=== PATIENT | male | born 1965 | race Caucasian/White ===

== ENCOUNTER 2020-06-01 11:48 | Inpatient (IN) | payer OTHER, SELFPAY ==
[2020-06-01] VITALS (11 sets, daily range): BP systolic 111–144; BP diastolic 53–91; PULSE 90–105; RESP 20–40; TEMP 35.7–38.1; O2SAT 89–95; BMI 35.2
--- NOTE | 2020-06-01 12:06 | ECG_ITS ---
Test Reason : OVERDOSE Blood Pressure : / mmHG Vent. Rate : 104 BPM Atrial Rate : 104 BPM P-R Int : 166 ms QRS Dur : 078 ms QT Int : 334 ms P-R-T Axes : 047 -33 032 degrees QTc Int : 439 ms Sinus tachycardia Left axis deviation Abnormal ECG No previous ECGs available Referred By: Pamela Pennington Electronically Signed By:SUKHDEEP FONSECA MD
--- NOTE | 2020-06-01 12:07 | XR_ITS ---
EXAMINATION: XR CHEST CLINICAL INFORMATION: Dyspnea COMPARISON: Report only of May 31, 2010 TECHNIQUE: AP portable view of the chest was obtained. FINDINGS: There is some elevation of the right hemidiaphragm with small lung volumes. No significant confluent acute parenchymal disease, pneumothorax, or pleural effusion. Heart normal size. No evidence of pulmonary edema. Mild basilar atelectasis seen right base. XR/XR chest 1V IMPRESSION: No significant acute parenchymal disease.
--- NOTE | 2020-06-01 12:08 | ED_ITS ---
HPI - Overdose General Chief Complaint: Dyspnea Stated Complaint: bloody nose, sob, weakness Time Seen by Provider: 06/01/20 12:05 Source: patient and EMS Mode of arrival: EMS Limitations: no limitations History of Present Illness HPI Narrative: patient snorted 10 bags of heroin lsat night, woke up with blood all over his face and coughing up brown phlegm, upon waking gave himself 2mg IN narcan now c/o shaking and nausea complaint: accidental overdose Onset (ago): day(s) (last night snorted 10 bags of heroin after coming off of suboxone 1 week ago) Context: Accidental Overdose: wanted to get high Associated symptoms: nausea/vomiting Treatments Prior to Arrival: oxygen (hypoxic 90% on RA, self administered narcan) Related Data Home Medications Medication Instructions Recorded Confirmed fluoxetine [Prozac] 20 mg PO DAILY 06/01/20 olanzapine 10 mg PO DAILY 06/01/20 Allergies Allergy/AdvReac Type Severity Reaction Status Date / Time No Known Allergies Allergy Verified 06/01/20 12:06 Review of Systems Review of Systems: Constitutional : No Fever, pos Chills ENT/Mouth : No sore throat, No Rhinorrhea, No Swallowing Difficulty Eyes: No Eye Pain, No Swelling, No Redness Cardiovascular : No Chest Pain, positive SOB, No Orthopnea, no Edema Respiratory : pos Cough, pos Sputum, No Wheezing, positive dyspnea Gastrointestinal : pos Nausea, No Vomiting, No Diarrhea, No abdominal Pain, No Hematochezia, No Melena Genitourinary : No Dysuria, No Urinary Frequency, No Hematuria Musculoskeletal : No joint pain, No Myalgias Skin : No Skin Lesions, No rash Neuro : No Weakness, No Numbness, No Dizziness, No Headache Psych : No Anxiety/Panic, No Depression Heme/Lymph: No Bruising, No Lymphadenopathy Endocrine : No Polyuria, No Polydipsia All other systems reviewed and are negative [facility] Past Medical History Attestation statement: The following information was validated with the patient. Medical History DIRK (obstructive sleep apnea) PTSD (post-traumatic stress disorder) Social History Social History Alcohol intake: never Smoking Status: Never smoker Use of substances other than those prescribed or required for medical reasons: Yes Substance Use Type: Heroin Substance Use Frequency: Recent Binge Last Used Substance: Days (ago) Any prior treatment program specific to substance use: Yes Advance Directives: No Advance Directives Information Provided: Yes Physical Exam Vital Signs: Vital Signs: Last Vital Signs Temp 100.5 F H 06/01/20 14:00 Pulse 97 06/01/20 15:38 Resp 30 H 06/01/20 15:38 BP 119/82 06/01/20 15:38 Pulse Ox 93 06/01/20 15:38 Body Mass Index 35.2 Appearance: Alert. Oriented X3. anxious, mild acute distress Eyes: Pupils equal, round and reactive to light. ENT: Pharynx normal. dried blood in R nare Neck: Normal inspection. Neck supple. CVS: Normal heart rate and rhythm. Pulses normal. Respiratory: No respiratory distress. Breath sounds decreased - brown sputum noted Abdomen: Soft and non-tender. Skin: Skin warm and dry. Normal skin color. Normal skin turgor. Extremities: No lower extremity edema. No calf ttp Neuro: Oriented X 3. No motor deficit. tips of L fingers 3-5 c/o feeling numb but can move freely Course Course Course Narrative: repeat lactic acid improving still low 90s on 4 to 5L NC, given tylenol for fever, empiric zosyn already given planned admit suspect L hand parasthesias due to compressive issue motor intact MDM - Overdose MDM Narrative Medical decision making narrative: 54 yo male with opiate use disorder woke up today with a bloody nose, brown sputum, gave himself narcan - given scenario and hypoxia suspect aspiration will need labs, CXR, cultures, lactic acid, IV zosyn, requiring supplemental O2 - planned admit Lab Data Result diagrams: 06/01/20 12:13 06/01/20 12:12 Labs: Lab Results 06/01/20 06/01/20 06/01/20 Range/Units 12:12 12:13 12:13 WBC 10.1 (4.8-10.8) X10*3/uL RBC 4.25 L (4.60-5.80) X10*6/uL Hgb 13.1 L (14.0-18.0) g/dl Hct 41.0 L (42-52) % MCV 96.5 (80-98) fL MCH 30.8 (27.0-33.0) pg MCHC 32.0 (31.0-36.0) g/dl RDW 14.1 (11.0-16.0) % Plt Count 259 (160-400) X10*3/uL MPV 9.5 (9.4-12.4) fL Immature Gran % (Auto) 0.8 H (0.0-0.4) % Neut % (Auto) 83.6 H (45-73) % Lymph % (Auto) 4.3 L (20-40) % Brantley % (Auto) 11.1 H (2-11) % Eos % (Auto) 0.0 (0-4) % Baso % (Auto) 0.2 (0-2) % Lymph # (Auto) 0.4 L (1.2-4.9) X10*3/uL Brantley # (Auto) 1.1 (0.1-1.2) X10*3/uL Eos # (Auto) 0.0 (0.0-0.4) X10*3/uL Baso # (Auto) 0.0 (0.0-0.2) X10*3/uL Abs Immat Gran (auto) 0.08 H (0.00-0.03) X10*3/uL Absolute Neuts (auto) 8.5 H (2.0-8.3) X10*3/uL Absolute Nucleated RBC 0.020 H (0.0-0.012) X10*3/uL Nucleated RBC % (auto) 0.2 (0.0-0.2) /100WBC Smear Tech's Comments VERIFIED PT 11.4 (10.8-13.0) SEC INR 1.0 (0.9-1.1) APTT 27.7 (24.1-38.0) SEC ABG pH (7.35-7.45) ABG pCO2 (32-45) mmhg ABG pO2 (83-108) mmhg ABG HCO3 (22-26) mmol/l ABG O2 Saturation % ABG Base Excess VBG pH (7.32-7.43) VBG pCO2 mmhg VBG pO2 mmhg VBG HCO3 mmol/L VBG O2 Saturation % VBG Base Excess mmol/L Oxygen Given Sodium 133 L (135-145) mmol/L Potassium 6.2 H* (3.3-5.1) mmol/l Chloride 99 (96-108) mmol/L Carbon Dioxide 20 L (22-29) mmol/L Anion Gap 20 (12-20) BUN 25 H (9-16) mg/dL Creatinine 3.40 H (0.5-1.4) mg/dL Estim Creat Clear Calc 33.3 Estimated GFR 19 Random Glucose 139 H (60-115) mg/dL Lactic Acid (0.5-2.0) mmol/L Lactic Acid Fup @ 2Hr (0.5-2.0) mmol/L Calcium 8.3 L (8.4-10.2) mg/dL Magnesium 2.2 (1.6-2.6) mg/dL Total Bilirubin 0.7 (0.0-1.0) mg/dL Direct Bilirubin 0.2 (0.0-0.5) mg/dL AST 86 H (5-37) U/L ALT 119 H (0-40) U/L Alkaline Phosphatase 139 H (39-117) U/L Total Creatine Kinase 890 H (38-174) U/L Troponin I High Sens (<3.5-35.0) ng/L B-Natriuretic Peptide (<100) pg/mL Total Protein 7.3 (6.5-8.0) g/dL Albumin 4.4 (3.5-5.0) g/dL Lipase 36 (8-78) U/L Urine Opiates Screen (Not Detect) Ur Barbiturates Screen (Not Detect) Ur Phencyclidine Scrn (Not Detect) Ur Amphetamines Screen (Not Detect) U Benzodiazepines Scrn (Not Detect) Urine Cocaine Screen (Not Detect) U Marijuana (THC) Screen (Not Detect) COVID-19 (DON) (Negative) COVID-19 Clin Com 06/01/20 06/01/20 06/01/20 Range/Units 12:13 12:13 12:17 WBC (4.8-10.8) X10*3/uL RBC (4.60-5.80) X10*6/uL Hgb (14.0-18.0) g/dl Hct (42-52) % MCV (80-98) fL MCH (27.0-33.0) pg MCHC (31.0-36.0) g/dl RDW (11.0-16.0) % Plt Count (160-400) X10*3/uL MPV (9.4-12.4) fL Immature Gran % (Auto) (0.0-0.4) % Neut % (Auto) (45-73) % Lymph % (Auto) (20-40) % Brantley % (Auto) (2-11) % Eos % (Auto) (0-4) % Baso % (Auto) (0-2) % Lymph # (Auto) (1.2-4.9) X10*3/uL Brantley # (Auto) (0.1-1.2) X10*3/uL Eos # (Auto) (0.0-0.4) X10*3/uL Baso # (Auto) (0.0-0.2) X10*3/uL Abs Immat Gran (auto) (0.00-0.03) X10*3/uL Absolute Neuts (auto) (2.0-8.3) X10*3/uL Absolute Nucleated RBC (0.0-0.012) X10*3/uL Nucleated RBC % (auto) (0.0-0.2) /100WBC Smear Tech's Comments PT (10.8-13.0) SEC INR (0.9-1.1) APTT (24.1-38.0) SEC ABG pH (7.35-7.45) ABG pCO2 (32-45) mmhg ABG pO2 (83-108) mmhg ABG HCO3 (22-26) mmol/l ABG O2 Saturation % ABG Base Excess VBG pH (7.32-7.43) VBG pCO2 mmhg VBG pO2 mmhg VBG HCO3 mmol/L VBG O2 Saturation % VBG Base Excess mmol/L Oxygen Given Sodium (135-145) mmol/L Potassium (3.3-5.1) mmol/l Chloride (96-108) mmol/L Carbon Dioxide (22-29) mmol/L Anion Gap (12-20) BUN (9-16) mg/dL Creatinine (0.5-1.4) mg/dL Estim Creat Clear Calc Estimated GFR Random Glucose (60-115) mg/dL Lactic Acid 4.7 H* (0.5-2.0) mmol/L Lactic Acid Fup @ 2Hr (0.5-2.0) mmol/L Calcium (8.4-10.2) mg/dL Magnesium (1.6-2.6) mg/dL Total Bilirubin (0.0-1.0) mg/dL Direct Bilirubin (0.0-0.5) mg/dL AST (5-37) U/L ALT (0-40) U/L Alkaline Phosphatase (39-117) U/L Total Creatine Kinase (38-174) U/L Troponin I High Sens 22.3 (<3.5-35.0) ng/L B-Natriuretic Peptide 72 (<100) pg/mL Total Protein (6.5-8.0) g/dL Albumin (3.5-5.0) g/dL Lipase (8-78) U/L Urine Opiates Screen (Not Detect) Ur Barbiturates Screen (Not Detect) Ur Phencyclidine Scrn (Not Detect) Ur Amphetamines Screen (Not Detect) U Benzodiazepines Scrn (Not Detect) Urine Cocaine Screen (Not Detect) U Marijuana (THC) Screen (Not Detect) COVID-19 (DON) Negative (Negative) COVID-19 Clin Com See Note 06/01/20 06/01/20 06/01/20 Range/Units 12:32 13:40 14:46 WBC (4.8-10.8) X10*3/uL RBC (4.60-5.80) X10*6/uL Hgb (14.0-18.0) g/dl Hct (42-52) % MCV (80-98) fL MCH (27.0-33.0) pg MCHC (31.0-36.0) g/dl RDW (11.0-16.0) % Plt Count (160-400) X10*3/uL MPV (9.4-12.4) fL Immature Gran % (Auto) (0.0-0.4) % Neut % (Auto) (45-73) % Lymph % (Auto) (20-40) % Brantley % (Auto) (2-11) % Eos % (Auto) (0-4) % Baso % (Auto) (0-2) % Lymph # (Auto) (1.2-4.9) X10*3/uL Brantley # (Auto) (0.1-1.2) X10*3/uL Eos # (Auto) (0.0-0.4) X10*3/uL Baso # (Auto) (0.0-0.2) X10*3/uL Abs Immat Gran (auto) (0.00-0.03) X10*3/uL Absolute Neuts (auto) (2.0-8.3) X10*3/uL Absolute Nucleated RBC (0.0-0.012) X10*3/uL Nucleated RBC % (auto) (0.0-0.2) /100WBC Smear Tech's Comments PT (10.8-13.0) SEC INR (0.9-1.1) APTT (24.1-38.0) SEC ABG pH 7.33 L (7.35-7.45) ABG pCO2 39 (32-45) mmhg ABG pO2 52 L (83-108) mmhg ABG HCO3 20 L (22-26) mmol/l ABG O2 Saturation 89.3 % ABG Base Excess -5.5 VBG pH 7.16 L* (7.32-7.43) VBG pCO2 60 mmhg VBG pO2 26 mmhg VBG HCO3 21 mmol/L VBG O2 Saturation 52.2 % VBG Base Excess -8.6 mmol/L Oxygen Given 5 L Sodium (135-145) mmol/L Potassium (3.3-5.1) mmol/l Chloride (96-108) mmol/L Carbon Dioxide (22-29) mmol/L Anion Gap (12-20) BUN (9-16) mg/dL Creatinine (0.5-1.4) mg/dL Estim Creat Clear Calc Estimated GFR Random Glucose (60-115) mg/dL Lactic Acid (0.5-2.0) mmol/L Lactic Acid Fup @ 2Hr (0.5-2.0) mmol/L Calcium (8.4-10.2) mg/dL Magnesium (1.6-2.6) mg/dL Total Bilirubin (0.0-1.0) mg/dL Direct Bilirubin (0.0-0.5) mg/dL AST (5-37) U/L ALT (0-40) U/L Alkaline Phosphatase (39-117) U/L Total Creatine Kinase (38-174) U/L Troponin I High Sens (<3.5-35.0) ng/L B-Natriuretic Peptide (<100) pg/mL Total Protein (6.5-8.0) g/dL Albumin (3.5-5.0) g/dL Lipase (8-78) U/L Urine Opiates Screen POSITIVE H (Not Detect) Ur Barbiturates Screen Not Detected (Not Detect) Ur Phencyclidine Scrn Not Detected (Not Detect) Ur Amphetamines Screen Not Detected (Not Detect) U Benzodiazepines Scrn Not Detected (Not Detect) Urine Cocaine Screen Not Detected (Not Detect) U Marijuana (THC) Screen Not Detected (Not Detect) COVID-19 (DON) (Negative) COVID-19 Clin Com 06/01/20 Range/Units 15:05 WBC (4.8-10.8) X10*3/uL RBC (4.60-5.80) X10*6/uL Hgb (14.0-18.0) g/dl Hct (42-52) % MCV (80-98) fL MCH (27.0-33.0) pg MCHC (31.0-36.0) g/dl RDW (11.0-16.0) % Plt Count (160-400) X10*3/uL MPV (9.4-12.4) fL Immature Gran % (Auto) (0.0-0.4) % Neut % (Auto) (45-73) % Lymph % (Auto) (20-40) % Brantley % (Auto) (2-11) % Eos % (Auto) (0-4) % Baso % (Auto) (0-2) % Lymph # (Auto) (1.2-4.9) X10*3/uL Brantley # (Auto) (0.1-1.2) X10*3/uL Eos # (Auto) (0.0-0.4) X10*3/uL Baso # (Auto) (0.0-0.2) X10*3/uL Abs Immat Gran (auto) (0.00-0.03) X10*3/uL Absolute Neuts (auto) (2.0-8.3) X10*3/uL Absolute Nucleated RBC (0.0-0.012) X10*3/uL Nucleated RBC % (auto) (0.0-0.2) /100WBC Smear Tech's Comments PT (10.8-13.0) SEC INR (0.9-1.1) APTT (24.1-38.0) SEC ABG pH (7.35-7.45) ABG pCO2 (32-45) mmhg ABG pO2 (83-108) mmhg ABG HCO3 (22-26) mmol/l ABG O2 Saturation % ABG Base Excess VBG pH (7.32-7.43) VBG pCO2 mmhg VBG pO2 mmhg VBG HCO3 mmol/L VBG O2 Saturation % VBG Base Excess mmol/L Oxygen Given Sodium (135-145) mmol/L Potassium (3.3-5.1) mmol/l Chloride (96-108) mmol/L Carbon Dioxide (22-29) mmol/L Anion Gap (12-20) BUN (9-16) mg/dL Creatinine (0.5-1.4) mg/dL Estim Creat Clear Calc Estimated GFR Random Glucose (60-115) mg/dL Lactic Acid (0.5-2.0) mmol/L Lactic Acid Fup @ 2Hr 2.2 H* (0.5-2.0) mmol/L Calcium (8.4-10.2) mg/dL Magnesium (1.6-2.6) mg/dL Total Bilirubin (0.0-1.0) mg/dL Direct Bilirubin (0.0-0.5) mg/dL AST (5-37) U/L ALT (0-40) U/L Alkaline Phosphatase (39-117) U/L Total Creatine Kinase (38-174) U/L Troponin I High Sens (<3.5-35.0) ng/L B-Natriuretic Peptide (<100) pg/mL Total Protein (6.5-8.0) g/dL Albumin (3.5-5.0) g/dL Lipase (8-78) U/L Urine Opiates Screen (Not Detect) Ur Barbiturates Screen (Not Detect) Ur Phencyclidine Scrn (Not Detect) Ur Amphetamines Screen (Not Detect) U Benzodiazepines Scrn (Not Detect) Urine Cocaine Screen (Not Detect) U Marijuana (THC) Screen (Not Detect) COVID-19 (DON) (Negative) COVID-19 Clin Com ECG Data Attestation: I personally reviewed and interpreted this ECG as follows: ECG interpretation date: 06/01/20 ECG interpretation time: 12:14 Interpretation: Rate: 104 Rhythm: sinus tachycardia Phillips: left Normal P waves. Normal LEANA. Normal QRS complex. ST T wave : normal qTC: normal prior studies: no acute ischemia The study has been interpreted contemporaneously by me. . Critical Care Time Critical Care Time Critical Care Time: Yes Total Critical Care Time: 35 Attestation: I attest to this time spent taking care of the patient Discharge Plan Discharge Clinical Impression: Acidosis, lactic, Fever, Aspiration pneumonia, Acute renal failure, Opiate overdose Patient Disposition: Admitted As Inpatient Prescriptions: No Action olanzapine 10 mg Tablet 10 mg PO DAILY RF: 0 fluoxetine [Prozac] 20 mg Capsule 20 mg PO DAILY RF: 0
[2020-06-01] MEDS: ondansetron HCL 4 MG/2 ML VIAL IVPUSH (12:16)
--- NOTE | 2020-06-01 12:26 | PC.NURSE ---
UPON ARRIVAL PT UPRIGHT IN BED, RR EVEN SHALLOW UNLABORED, SPO2 NOTED TO BE 89% RA, PT PLACED ON 2L O2 NC, LITTLE TO NO IMPROVEMENT IN SPO2, NC O2 INCREASED TO 4LPM, THEN 6LPM, PT PRIMARILY BREATHING THROUGH MOUTH, ENCOURAGED TO BREATHE THROUGH NOSE TO BETTER UTILIZE O2, PT SPO2 INCREASED TO 92% ATT, PROVIDER AWARE, PT AWAITING UPDRAFT.
[2020-06-01 12:28] LABS: Basophils Percent Auto 0.2 % (0-2); Hemoglobin 13.1 g/dl (14.0-18.0); Imm Gran Abs Auto 0.08 X10*3/uL (0.00-0.03); Imm Gran Pct Auto 0.8 % (0.0-0.4); Lymphocytes Absolute Auto 0.4 X10*3/uL (1.2-4.9); Lymphocytes Percent Auto 4.3 % (20-40); MANUAL DIFF FLAG SCAN; Mean Corpuscular Hemoglobin 30.8 pg (27.0-33.0); Mean Corpuscular Volume 96.5 fL (80-98); Mean Platelet Volume 9.5 fL (9.4-12.4); Monocytes Absolute Auto 1.1 X10*3/uL (0.1-1.2); Monocytes Percent Auto 11.1 % (2-11); NRBC Pct Auto 0.2 /100WBC (0.0-0.2); Neutrophils Absolute Auto 8.5 X10*3/uL (2.0-8.3); Neutrophils Percent Auto 83.6 % (45-73); Platelet Count 259 X10*3/uL (160-400); Red Blood Count 4.25 X10*6/uL (4.60-5.80); Red Cell Distribution Width 14.1 % (11.0-16.0); SCAN SMEAR FLAG 1; White Blood Count 10.1 X10*3/uL (4.8-10.8)
[2020-06-01] MEDS: Piperacillin Sodium/Tazobactam 3.375 GM in 0.9 % Sodium Chloride 50 ML IV (12:33)
[2020-06-01 12:40] LABS: Prothrombin Time 11.4 SEC (10.8-13.0)
[2020-06-01 12:42] LABS: COVID-19 Test Negative (Negative)
[2020-06-01 12:43] LABS: Partial Thromboplastin Time 27.7 SEC (24.1-38.0)
[2020-06-01 12:46] LABS: SLIDE REVIEW VERIFIED
[2020-06-01 12:48] LABS: Base Excess VBG -8.6 mmol/L; HCO3 VBG 21 mmol/L; Oxygen Saturation VBG 52.2 %; PCO2 VBG 60 mmhg; PO2 VBG 26 mmhg
[2020-06-01 12:50] LABS: pH VBG 7.16 (7.32-7.43)
[2020-06-01] MEDS: Albuterol Sulfate (0.083%) 2.5 MG/3 ML VIAL.NEB INHALE (12:52)
[2020-06-01 13:06] LABS: B Type Natriuretic Peptide 72 pg/mL (<100); Troponin-I High Sensitivity 22.3 ng/L (<3.5-35.0)
[2020-06-01 13:24] LABS: Alanine Aminotransferase 119 U/L (0-40); Albumin Level 4.4 g/dL (3.5-5.0); Alkaline Phosphatase 139 U/L (39-117); Anion Gap 20 (12-20); Aspartate Amino Transferase 86 U/L (5-37); Bilirubin Direct 0.2 mg/dL (0.0-0.5); Bilirubin Total 0.7 mg/dL (0.0-1.0); Blood Urea Nitrogen 25 mg/dL (9-16); Calcium 8.3 mg/dL (8.4-10.2); Carbon Dioxide 20 mmol/L (22-29); Chloride 99 mmol/L (96-108); Creatinine Clr Calc Pharmacy 33.3; Estimated Glomerular Filt Rate 19; Glucose Random 139 mg/dL (60-115); Lipase 36 U/L (8-78); Magnesium 2.2 mg/dL (1.6-2.6); Potassium 6.2 mmol/l (3.3-5.1); Sodium 133 mmol/L (135-145); Total Protein 7.3 g/dL (6.5-8.0)
[2020-06-01 13:25] LABS: Lactic Acid 4.7 mmol/L (0.5-2.0)
--- NOTE | 2020-06-01 13:48 | CT_ITS ---
EXAMINATION: CT HEAD WITHOUT CONTRAST CLINICAL INFORMATION: Left hand numbness COMPARISON: Report of September 03, 2007 TECHNIQUE: Contiguous axial imaging was performed from the skull base to vertex without intravenous administration of contrast. This CT examination was performed using dose optimization techniques as appropriate, variously including the following: *Automated exposure control *Adjustment of mA and/or kV according to patient size (this includes techniques or standardized protocols for targeted exams where dose is matched to indication/reason for exam; i.e. extremities or head) *Use of iterative reconstruction technique DLP: 771 mGy-cm FINDINGS: There is no evidence of acute intracranial hemorrhage or territorial infarction. No abnormal mass effect or midline shift is seen. Potts to white matter differentiation is well preserved. No extra-axial fluid collections are identified. The ventricles are normal in size. There is no abnormal attenuation within the brain parenchyma. The osseous structures and soft tissues are normal. The mastoid air cells are well aerated. There is bilateral maxillary sinus disease. CT/CT head/brain wo con IMPRESSION: No acute intracranial pathology.
[2020-06-01 13:52] LABS: Pt Ventilation O2% 5 L
[2020-06-01 14:00] LABS: ABG PCO2 39 mmhg (32-45); Base Excess ABG -5.5; HCO3 ABG 20 mmol/l (22-26); Oxygen Saturation ABG 89.3 %; PO2 ABG 52 mmhg (83-108); pH ABG 7.33 (7.35-7.45)
--- NOTE | 2020-06-01 14:04 | CT_ITS ---
EXAMINATION: CT CHEST WITHOUT CONTRAST CLINICAL INFORMATION: Hypoxia COMPARISON: Chest x-ray of same day and CT report of September 03, 2007 TECHNIQUE: Multidetector volumetric CT imaging of the chest was done. Axial MIP volume rendering provided. Sagittal and coronal reformatted images were obtained. This CT examination was performed using dose optimization techniques as appropriate, variously including the following: *Automated exposure control *Adjustment of mA and/or kV according to patient size (this includes techniques or standardized protocols for targeted exams where dose is matched to indication/reason for exam; i.e. extremities or head) *Use of iterative reconstruction technique DLP: 456 mGy-cm FINDINGS: LUNGS: There are some regions of disease seen in the lower lobes bilaterally with tree-in-bud configuration consistent with centrilobular peribronchial dilatation and filling with mucus, pus, or fluid. No definite confluent pneumonitis identified. There is bronchial wall thickening present in the lower lobes. No bronchiectasis is seen. No suspicious lung nodules. MEDIASTINUM: Heart normal size. No pericardial effusion. There is minimal calcified coronary artery plaque within left anterior descending coronary artery. The ascending thoracic aorta measures up to 4 cm in diameter. There is a 1.1 cm short axis right paratracheal lymph node. There is a 1 cm right hilar lymph node. PLEURA: There is no pleural effusion. No pleural mass or thickening. AXILLA: No lymphadenopathy. UPPER ABDOMEN: There is fatty infiltration of the liver. OSSEOUS STRUCTURES: No suspicious destructive bony lesions identified. There is degenerative change of both shoulders evident. CT/CT chest wo con IMPRESSION: No confluent pneumonitis identified. Regions of tree-in-bud configuration peripherally within the lower lobes bilaterally likely infectious or inflammatory in nature. There is also dependent atelectasis present. Prominent ascending thoracic aorta measuring 4 cm in diameter. Mild mediastinal and right hilar lymphadenopathy.
[2020-06-01 14:20] LABS: Reflex Lactate? Lactic Acid Added
[2020-06-01] MEDS: Acetaminophen 325 MG TABLET 650 MG PO (14:43)
[2020-06-01 15:34] LABS: Amphetamine Screen Urine Not Detected (Not Detect); Barbiturates, Urine Not Detected (Not Detect); Benzodiazepines Screen Urine Not Detected (Not Detect); Cannabinoid Screen Urine Not Detected (Not Detect); Cocaine Screen Urine Not Detected (Not Detect); Opiate Screen Urine POSITIVE (Not Detect); Phencyclidine Screen Urine Not Detected (Not Detect)
[2020-06-01 15:39] LABS: ~Lactic Acid-LAB USE ONLY 2.2 mmol/L (0.5-2.0)
[2020-06-01 16:49] LABS: Anion Gap 15 (12-20); Blood Urea Nitrogen 26 mg/dL (9-16); Calcium 7.5 mg/dL (8.4-10.2); Carbon Dioxide 23 mmol/L (22-29); Chloride 103 mmol/L (96-108); Creatinine Clr Calc Pharmacy 40.1; Estimated Glomerular Filt Rate 24; Glucose Random 105 mg/dL (60-115); Potassium 6.5 mmol/l (3.3-5.1); Sodium 134 mmol/L (135-145)
[2020-06-01] MEDS: Calcium Gluconate/NaCl,Iso-Osm 2 GM/100 ML PLAST..BAG IV (17:07)
[2020-06-01] MEDS: Insulin Regular, Human 100 UNIT/ML 3 ML VIAL IVPUSH (17:07)
[2020-06-01] MEDS: Sodium Polystyrene Sulfon/Sorb 15 GM/60 ML ORAL.SUSP 30 GM PO (17:07)
[2020-06-01 17:09] LABS: Reflex Lactate? 2 Y
[2020-06-01 17:57] LABS: ~Lactic Acid-LAB USE ONLY 1.9 mmol/L (0.5-2.0)
[2020-06-01] MEDS: Sodium Bicarbonate 8.4% 50 MEQ/50 ML SYRINGE IVPUSH (18:49)
--- NOTE | 2020-06-01 20:05 | P.HPHOSP_ITS ---
History of Present Illness Date of Service: 06/01/20 <PEDRO PABLO Kwon - Last Filed: 06/01/20 20:34> Chief Complaint: shortness of breath <PEDRO PABLO Kwon - Last Filed: 06/01/20 20:34> this is a 54-year-old male who presents to the emergency department with weakness and cough. Yesterday patient has snorted multiple bags of heroin. He woke up this morning with dried blood all over his face, shortness of breath, weakness. He self administered Narcan. He called 911 and was brought to the emergency department for evaluation. He was initially tachycardic and tachypneic on arrival. Oxygen saturation was 89% on nasal cannula. Lab work revealed creatinine of 3.40 with a potassium of 6.2. Lactic acid was 4.7. VBG showed pH is 7.16 therefore ABG was obtained and showed pH of 7.33. There was concern for aspiration pneumonia and he was started on IV Zosyn. He was treated with 30 cc/kg bolus of IV fluid. LFTs were slightly elevated. Lactic acid improved to 2.2 with IV fluid however potassium increased to 6.5. He was then treated with calcium gluconate, albuterol, insulin, dextrose, Kayexalate. <PEDRO PABLO Kwon - Last Filed: 06/01/20 20:34> Review of Systems Review of Systems: Yes all other systems are reviewed and are negative <PEDRO PABLO Kwon - Last Filed: 06/01/20 20:34> Constitutional: Constitutional: Denies chills and Denies fever(s) <PEDRO PABLO Kwon Last Filed: 06/01/20 20:34> Cardiovascular: Cardiovascular: Denies chest pain <PEDRO PABLO Kwon - Last Filed: 06/01/20 20:34> Respiratory: Respiratory: Denies cough <PEDRO PABLO Kwon Last Filed: 06/01/20 20:34> Gastrointestinal: Gastrointestinal: Denies abdominal pain <PEDRO PABLO Kwon Last Filed: 06/01/20 20:34> FORMERLY [facility], [facility] Medical History: Medical History ADHD GERD (gastroesophageal reflux disease) Hyperlipidemia Opiate abuse, episodic DIRK (obstructive sleep apnea) PTSD (post-traumatic stress disorder) <PEDRO PABLO Kwon - Last Filed: 06/01/20 20:34> Family history: reviewed and not pertinent <PEDRO PABLO Kwon - Last Filed: 06/01/20 20:34> Social History: Social History (Updated 06/01/20 @ 20:09 by PEDRO PABLO Kwon) Household Members: Significant Other Housing: House Do you presently have visiting nurse or other home services: No Alcohol intake: current Alcohol intake frequency: a few times a week Smoking Status: Never smoker Use of substances other than those prescribed or required for medical reasons: Yes Substance Use Type: Heroin Substance Use Frequency: Recent Binge Last Used Substance: Just Prior to Admission Currently Displaying Signs/Symptoms of Drug Intoxication Withdrawal: No Any prior treatment program specific to substance use: Yes ([facility]) Do you feel safe in your current relationship?: No Current Relationship Advance Directives: No Advance Directives Information Provided: Yes Do you have thoughts of harming others: None Do you have a plan to hurt others: No Plan Recently lost weight without trying: No <PEDRO PABLO Kwon - Last Filed: 06/01/20 20:34> Meds Allergies/Adverse reactions: Allergies Allergy/AdvReac Type Severity Reaction Status Date / Time No Known Allergies Allergy Verified 06/01/20 12:06 <PEDRO PABLO Kwon - Last Filed: 06/01/20 20:34> Home medications: Home Medications Medication Instructions Recorded Confirmed Type buprenorphine-naloxone [Suboxone] 2 tab SUBLINGUAL DAILY 06/01/20 06/01/20 History dextroamphetamine-amphetamine 60 mg PO DAILY 06/01/20 06/01/20 History [Adderall XR] ferrous sulfate 325 mg PO DAILY 06/01/20 06/01/20 History fluoxetine 60 mg PO DAILY 06/01/20 06/01/20 History ibuprofen 600 mg PO TID PRN 06/01/20 06/01/20 History multivitamin [Multivites] 1 tab PO DAILY 06/01/20 06/01/20 History olanzapine 15 mg PO BEDTIME 06/01/20 06/01/20 History omega 4-pbu-kvi-fish oil [Fish Oil] 1 cap PO DAILY 06/01/20 06/01/20 History omeprazole 20 mg PO DAILY 06/01/20 06/01/20 History prazosin 3 mg PO BEDTIME PRN 06/01/20 06/01/20 History trazodone 50 mg PO BEDTIME PRN 06/01/20 06/01/20 History <PEDRO PABLO Kwon - Last Filed: 06/01/20 20:34> Physical Exam Vital Signs and Narrative: Vital Signs: Last Vital Signs Temp 100.5 F H 06/01/20 14:00 Pulse 91 06/01/20 18:00 Resp 20 06/01/20 18:00 BP 144/91 H 06/01/20 18:00 Pulse Ox 93 06/01/20 18:00 Body Mass Index 35.2 <PEDRO PABLO Kwon - Last Filed: 06/01/20 20:34> Const: Nutritional Appearance: well nourished <PEDRO PABLO Kwon Last Filed: 06/01/20 20:34> Orientation/consciousness: patient oriented x3 <PEDRO PABLO Kwon - Last Filed: 06/01/20 20:34> HENMT: Head: Yes normocephalic and Yes atraumatic <PEDRO PABLO Kwon - Last Filed: 06/01/20 20:34> Eyes: Sclerae: sclerae normal <PEDRO PABLO Kwon Last Filed: 06/01/20 20:34> Chest: Chest palpation & inspection: normal inspection of the chest <PEDRO PABLO Kwon Last Filed: 06/01/20 20:34> Resp: Effort & Inspection: normal respiratory effort and no respiratory distress <PEDRO PABLO Kwon Last Filed: 06/01/20 20:34> Cardio: Rate: regular rate <PEDRO PABLO Kwon - Last Filed: 06/01/20 20:34> Rhythm: regular rhythm <PEDRO PABLO Kwon Last Filed: 06/01/20 20:34> GI: Palpation (GI): Soft to palpation and nontender <PEDRO PABLO Kwon Last Filed: 06/01/20 20:34> Skin: General skin exam: no rashes or lesions noted <PEDRO PABLO Kwon - Last Filed: 06/01/20 20:34> Neuro: General: patient oriented x3 <PEDRO PABLO Kwon - Last Filed: 06/01/20 20:34> Cranial nerves: Yes CN's II-XII intact bilaterally and Yes Bilaterally intact EOM present <PEDRO PABLO Kwon - Last Filed: 06/01/20 20:34> Extrem: General: Yes normal to inspection <PEDRO PABLO Kwon - Last Filed: 06/01/20 20:34> Results Labs CBC and Chem 7: : 06/01/20 12:13 06/02/20 02:03 <PEDRO PABLO Kwon - Last Filed: 06/01/20 20:34> Labs: Laboratory Results - last 24 hr 06/01/20 06/01/20 06/01/20 12:12 12:13 12:13 MCV 96.5 MCH 30.8 MCHC 32.0 RDW 14.1 Plt Count 259 MPV 9.5 Immature Gran % (Auto) 0.8 H Neut % (Auto) 83.6 H Lymph % (Auto) 4.3 L Caswell % (Auto) 11.1 H Eos % (Auto) 0.0 Baso % (Auto) 0.2 Lymph # (Auto) 0.4 L [place] # (Auto) 1.1 Eos # (Auto) 0.0 Baso # (Auto) 0.0 Abs Immat Gran (auto) 0.08 H Absolute Neuts (auto) 8.5 H Absolute Nucleated RBC 0.020 H Nucleated RBC % (auto) 0.2 Smear Tech's Comments VERIFIED PT 11.4 INR 1.0 APTT 27.7 ABG pH ABG pCO2 ABG pO2 ABG HCO3 ABG O2 Saturation ABG Base Excess VBG pH VBG pCO2 VBG pO2 VBG HCO3 VBG O2 Saturation VBG Base Excess Oxygen Given Anion Gap 20 Estim Creat Clear Calc 33.3 Estimated GFR 19 Random Glucose 139 H Lactic Acid Lactic Acid Fup @ 2Hr Lactic Acid Fup @ 4Hr Calcium 8.3 L Magnesium 2.2 Total Bilirubin 0.7 Direct Bilirubin 0.2 AST 86 H ALT 119 H Alkaline Phosphatase 139 H Total Creatine Kinase 890 H Troponin I High Sens B-Natriuretic Peptide Total Protein 7.3 Albumin 4.4 Lipase 36 Urine Opiates Screen Ur Barbiturates Screen Ur Phencyclidine Scrn Ur Amphetamines Screen U Benzodiazepines Scrn Urine Cocaine Screen U Marijuana (THC) Screen COVID-19 (DON) COVID-19 Clin Com 06/01/20 06/01/20 06/01/20 12:13 12:13 12:17 MCV MCH MCHC RDW Plt Count MPV Immature Gran % (Auto) Neut % (Auto) Lymph % (Auto) [place] % (Auto) Eos % (Auto) Baso % (Auto) Lymph # (Auto) Caswell # (Auto) Eos # (Auto) Baso # (Auto) Abs Immat Gran (auto) Absolute Neuts (auto) Absolute Nucleated RBC Nucleated RBC % (auto) Smear Tech's Comments PT INR APTT ABG pH ABG pCO2 ABG pO2 ABG HCO3 ABG O2 Saturation ABG Base Excess VBG pH VBG pCO2 VBG pO2 VBG HCO3 VBG O2 Saturation VBG Base Excess Oxygen Given Anion Gap Estim Creat Clear Calc Estimated GFR Random Glucose Lactic Acid 4.7 H* Lactic Acid Fup @ 2Hr Lactic Acid Fup @ 4Hr Calcium Magnesium Total Bilirubin Direct Bilirubin AST ALT Alkaline Phosphatase Total Creatine Kinase Troponin I High Sens 22.3 B-Natriuretic Peptide 72 Total Protein Albumin Lipase Urine Opiates Screen Ur Barbiturates Screen Ur Phencyclidine Scrn Ur Amphetamines Screen U Benzodiazepines Scrn Urine Cocaine Screen U Marijuana (THC) Screen COVID-19 (DON) Negative COVID-19 Clin Com See Note 06/01/20 06/01/20 06/01/20 12:32 13:40 14:46 MCV MCH MCHC RDW Plt Count MPV Immature Gran % (Auto) Neut % (Auto) Lymph % (Auto) [place] % (Auto) Eos % (Auto) Baso % (Auto) Lymph # (Auto) [place] # (Auto) Eos # (Auto) Baso # (Auto) Abs Immat Gran (auto) Absolute Neuts (auto) Absolute Nucleated RBC Nucleated RBC % (auto) Smear Tech's Comments PT INR APTT ABG pH 7.33 L ABG pCO2 39 ABG pO2 52 L ABG HCO3 20 L ABG O2 Saturation 89.3 ABG Base Excess -5.5 VBG pH 7.16 L* VBG pCO2 60 VBG pO2 26 VBG HCO3 21 VBG O2 Saturation 52.2 VBG Base Excess -8.6 Oxygen Given 5 L Anion Gap Estim Creat Clear Calc Estimated GFR Random Glucose Lactic Acid Lactic Acid Fup @ 2Hr Lactic Acid Fup @ 4Hr Calcium Magnesium Total Bilirubin Direct Bilirubin AST ALT Alkaline Phosphatase Total Creatine Kinase Troponin I High Sens B-Natriuretic Peptide Total Protein Albumin Lipase Urine Opiates Screen POSITIVE H Ur Barbiturates Screen Not Detected Ur Phencyclidine Scrn Not Detected Ur Amphetamines Screen Not Detected U Benzodiazepines Scrn Not Detected Urine Cocaine Screen Not Detected U Marijuana (THC) Screen Not Detected COVID-19 (DON) COVID-19 [employer] 06/01/20 06/01/20 06/01/20 15:05 16:10 17:24 MCV MCH MCHC RDW Plt Count MPV Immature Gran % (Auto) Neut % (Auto) Lymph % (Auto) [place] % (Auto) Eos % (Auto) Baso % (Auto) Lymph # (Auto) [place] # (Auto) Eos # (Auto) Baso # (Auto) Abs Immat Gran (auto) Absolute Neuts (auto) Absolute Nucleated RBC Nucleated RBC % (auto) Smear Tech's Comments PT INR APTT ABG pH ABG pCO2 ABG pO2 ABG HCO3 ABG O2 Saturation ABG Base Excess VBG pH VBG pCO2 VBG pO2 VBG HCO3 VBG O2 Saturation VBG Base Excess Oxygen Given Anion Gap 15 Estim Creat Clear Calc 40.1 Estimated GFR 24 Random Glucose 105 Lactic Acid Lactic Acid Fup @ 2Hr 2.2 H* Lactic Acid Fup @ 4Hr 1.9 Calcium 7.5 L D Magnesium Total Bilirubin Direct Bilirubin AST ALT Alkaline Phosphatase Total Creatine Kinase Troponin I High Sens B-Natriuretic Peptide Total Protein Albumin Lipase Urine Opiates Screen Ur Barbiturates Screen Ur Phencyclidine Scrn Ur Amphetamines Screen U Benzodiazepines Scrn Urine Cocaine Screen U Marijuana (THC) Screen COVID-19 (DON) COVID-19 [employer] <PEDRO PABLO Kwon - Last Filed: 06/01/20 20:34> Imaging Radiologist's Impressions: Impressions Chest X-Ray 06/01/20 12:07 IMPRESSION: No significant acute parenchymal disease. Head CT 06/01/20 13:48 IMPRESSION: No acute intracranial pathology. Chest CT 06/01/20 14:04 IMPRESSION: No confluent pneumonitis identified. Regions of tree-in-bud configuration peripherally within the lower lobes bilaterally likely infectious or inflammatory in nature. There is also dependent atelectasis present. Prominent ascending thoracic aorta measuring 4 cm in diameter. Mild mediastinal and right hilar lymphadenopathy. <PEDRO PABLO Kwon - Last Filed: 06/01/20 20:34> Assessment and Plan (1) Acute respiratory failure with hypoxia: Status: Acute <PEDRO PABLO Kwon - Last Filed: 06/01/20 20:34> (2) Sepsis: Status: Acute <PEDRO PABLO Kwon - Last Filed: 06/01/20 20:34> This is a 54 year old male with history of DIRK, HLD, opiate abuse who presents emergency department wtih shortness of breath found to have sepsis, pneumonia, hypoxia. acute respiratory failure with hypoxia O2 saturation 89% arrival related to underlying pneumonia supplemental oxygen as needed sepsis secondary to pneumonia meets criteria with fever of 100.5, tachycardia, tachypnea lactic acid elevated at 4.7 related to underlying pneumonia, likely aspiration covid negative received 30 cc/kg bolus of IV fluid sepsis focused exam completed continue IV antibiotics follow-up blood cultures renal insufficiency creatinine 3.4 initially, improved to 2.8 after IV fluid no baseline for comparison although patient denies history of renal dysfunction avoid nephrotoxic medications when possible continue IV fluid monitor renal function closely hyperkalemia K 6.2, 6.5, 6.4 likely secondary to renal insufficiency s/p treatment in the ED. Follow [facility] closely tele monitoring elevated LFTs repeat liver panel in a.m. troponin slightly elevated, will repeat. no chest pain opiate abuse previously on Suboxone weaned off over the past 1 week for unclear reasons care team evaluation no withdrawal at this time obstructive sleep apnea CPAP GERD continue omeprazole mood continue fluoxetine ADHD hold Adderall her pharmacist patient has not filled prazosin, trazodone, olanzapine recently. These will be placed on hold DVT prophylaxis- heparin code status- full code This case was discussed with Dr. arita <PEDRO PABLO Kwon - Last Filed: 06/01/20 20:34>
[2020-06-01 20:20] LABS: Anion Gap 15 (12-20); Blood Urea Nitrogen 25 mg/dL (9-16); Calcium 7.9 mg/dL (8.4-10.2); Carbon Dioxide 24 mmol/L (22-29); Chloride 105 mmol/L (96-108); Creatinine Clr Calc Pharmacy 44.7; Estimated Glomerular Filt Rate 27; Glucose Random 114 mg/dL (60-115); Potassium 6.4 mmol/l (3.3-5.1); Sodium 138 mmol/L (135-145)
[2020-06-01] MEDS: Insulin Regular, Human 100 UNIT/ML 3 ML VIAL 10 UNIT IVPUSH (21:34)
[2020-06-01] MEDS: Sodium Polystyrene Sulfon/Sorb 15 GM/60 ML ORAL.SUSP PO (21:35)
[2020-06-02] VITALS (7 sets, daily range): BP systolic 145–197; BP diastolic 62–93; PULSE 90–98; RESP 16–20; TEMP 36.4–36.9; O2SAT 93–95; BMI 35.2
[2020-06-02] MEDS: Heparin Sodium,Porcine 5,000 UNIT/ML VIAL 5000 UNIT SUBCUT ×2 (01:08→11:27)
[2020-06-02] MEDS: 0.9 % Sodium Chloride Flush 3 ML SYRINGE IVFLUSH ×3 (01:09→16:49)
[2020-06-02] MEDS: 0.9 % Sodium Chloride 1,000 ML 100 ML IVCONT ×3 (01:09→20:38)
[2020-06-02] MEDS: Piperacillin Sodium/Tazobactam 3.375 GM in 0.9 % Sodium Chloride 50 ML IV ×3 (01:10→11:27)
[2020-06-02 01:18] LABS: Glucose, Whole Blood 120 mg/dL (60-115)
[2020-06-02 02:01] LABS: Troponin-I High Sensitivity 59.6 ng/L (<3.5-35.0)
[2020-06-02] MEDS: Acetaminophen 325 MG TABLET 650 MG PO (02:01)
[2020-06-02 02:56] LABS: Anion Gap 15 (12-20); Blood Urea Nitrogen 25 mg/dL (9-16); Calcium 7.9 mg/dL (8.4-10.2); Carbon Dioxide 25 mmol/L (22-29); Chloride 105 mmol/L (96-108); Creatinine Clr Calc Pharmacy 52.4; Estimated Glomerular Filt Rate 32; Glucose Random 130 mg/dL (60-115); Potassium 4.9 mmol/l (3.3-5.1); Sodium 140 mmol/L (135-145)
[2020-06-02] MEDS: Omeprazole 20 MG CAPSULE.DR PO (05:35)
--- NOTE | 2020-06-02 05:36 | PM.EVENT ---
Event Note Date of Service: 06/02/20 Event Note: admission note: 54 y/o male who presented to the ED with generalized weakness and sob after Heroin abuse. To be admitted due to sepsis secondary to suspected aspiration PNA, Hypoxic respiratory failure, NASREEN and Hyperkalemia. ROS and PE as per H and P. PMHX: ADHD GERD (gastroesophageal reflux disease) Hyperlipidemia Opiate abuse, episodic DIRK (obstructive sleep apnea) PTSD (post-traumatic stress disorder) PSX: none Toxic habits: Heroin abuse, no hx of alcohol abuse or smoker Assessment/Plan: 1- Sepsis secondary to aspiration PNA, Hypoxic respiratory failure: Continue with Zosyn for gram neg/anaerobic coverage, Follow [facility] and Follow up with ID in the am 2- NASREEN (Resolving): Continue with IV hydration, creatinine from 3.40 to 2.16 now 3-Hyperkalemia (Resolved): 6.1-->4.9 4- Lactate acidosis (resolved): 4.7-->1.9 Rest of the plan as discussed with PEDRO PABLO Miramontes per H and P
[2020-06-02 06:45] LABS: Alanine Aminotransferase 101 U/L (0-40); Albumin Level 3.6 g/dL (3.5-5.0); Alkaline Phosphatase 102 U/L (39-117); Anion Gap 13 (12-20); Aspartate Amino Transferase 92 U/L (5-37); Bilirubin Direct 0.2 mg/dL (0.0-0.5); Bilirubin Total 0.6 mg/dL (0.0-1.0); Blood Urea Nitrogen 23 mg/dL (9-16); Calcium 7.7 mg/dL (8.4-10.2); Carbon Dioxide 25 mmol/L (22-29); Chloride 107 mmol/L (96-108); Creatinine Clr Calc Pharmacy 61.8; Estimated Glomerular Filt Rate 39; Glucose Random 119 mg/dL (60-115); Potassium 4.6 mmol/l (3.3-5.1); Sodium 140 mmol/L (135-145); Total Protein 5.9 g/dL (6.5-8.0)
[2020-06-02 06:49] LABS: Hematocrit 32.3 % (42-52); Hemoglobin 10.7 g/dl (14.0-18.0); Imm Gran Abs Auto 0.03 X10*3/uL (0.00-0.03); Imm Gran Pct Auto 0.4 % (0.0-0.4); Lymphocytes Absolute Auto 0.5 X10*3/uL (1.2-4.9); Lymphocytes Percent Auto 6.5 % (20-40); MANUAL DIFF FLAG SCAN; Mean Corpuscular HGB Conc 33.1 g/dl (31.0-36.0); Mean Corpuscular Hemoglobin 30.9 pg (27.0-33.0); Mean Corpuscular Volume 93.4 fL (80-98); Mean Platelet Volume 10.3 fL (9.4-12.4); Monocytes Absolute Auto 0.7 X10*3/uL (0.1-1.2); Monocytes Percent Auto 10.2 % (2-11); Neutrophils Percent Auto 82.9 % (45-73); Platelet Count 163 X10*3/uL (160-400); Red Blood Count 3.46 X10*6/uL (4.60-5.80); Red Cell Distribution Width 14.3 % (11.0-16.0); SCAN SMEAR FLAG 1; White Blood Count 7.2 X10*3/uL (4.8-10.8)
[2020-06-02] MEDS: FLUoxetine HCl 20 MG CAPSULE 60 MG PO (09:10)
[2020-06-02] MEDS: Multivitamin TABLET 1 TAB PO (09:10)
[2020-06-02 09:56] LABS: SLIDE REVIEW VERIFIED
[2020-06-02 11:20] LABS: Troponin-I High Sensitivity 46.9 ng/L (<3.5-35.0)
[2020-06-02] MEDS: Buprenorphine/Naloxone 4/1 mg FILM 1 FILM SUBLINGUAL ×2 (13:11→13:54)
--- NOTE | 2020-06-02 13:15 | HO.ADDICTCON ---
History of Present Illness Date of Service: 06/02/2020 Chief Complaint: bloody nose, sob, weakness Reason for Consult: Opioid use disorder Currently on MAT with ? recent Overdose Requesting physician: Emanuel Saini Discussed with referring provider: Yes Sources of Information: patient interviewed and chart reviewed HPI Narrative: Patient is a 54 year old male with [facility] He is currently medically admitted with aspiration pneumonia He reported having used several bags if heroin IN the night before admission and woke to bloody nose so he self administered narcan He reports that he had not used any opiates in over 10 years prior to using the other night. The history he reports does not quite line up with what [employer]ACH[employer] shows, nonetheless he is interested in restarting suboxone as previously prescribed (16mg every morning SL) He is visibly anxious, restless, reporting nausea, joint pain. Medical Evaluation Reviewed: Yes Review of Systems Constitutional: Reports body ache(s) and Reports malaise Gastrointestinal: Denies diarrhea, Denies loose stools, Reports nausea and Denies vomiting Psychiatric: Reports anxiety, Denies depression, Denies hopelessness and Denies suicidal ideation Diagnostics Vital Signs (24Hr): Vital Signs - 24 hr 06/01/20 13:27 06/01/20 13:55 06/01/20 14:00 Temperature 100.5 F H Pulse Rate 105 H 102 H Respiratory Rate 32 H 28 H Blood Pressure 111/81 126/63 Pulse Oximetry 92 90 L 06/01/20 15:38 06/01/20 16:00 06/01/20 18:00 Temperature Pulse Rate 97 96 91 Respiratory Rate 30 H 24 H 20 Blood Pressure 119/82 123/69 144/91 H Pulse Oximetry 93 92 93 06/01/20 20:12 06/02/20 00:00 06/02/20 03:56 Temperature 98.0 F 98.1 F 98.2 F Pulse Rate 90 90 91 Respiratory Rate 20 16 Blood Pressure 111/53 L 155/75 H 164/85 H Pulse Oximetry 93 95 95 06/02/20 08:00 06/02/20 08:48 06/02/20 11:59 Temperature 97.5 F 98.4 F Pulse Rate 93 97 Respiratory Rate 20 20 Blood Pressure 197/93 H 154/78 H 145/86 H Pulse Oximetry 93 95 Body Mass Index 35.2 Labs Results: 06/02/20 05:13 06/02/20 05:13 Labs: Laboratory Results - last 48 hr 06/01/20 06/01/20 06/01/20 12:12 12:13 12:13 WBC 10.1 RBC 4.25 L Hgb 13.1 L Hct 41.0 L MCV 96.5 MCH 30.8 MCHC 32.0 RDW 14.1 Plt Count 259 MPV 9.5 Immature Gran % (Auto) 0.8 H Neut % (Auto) 83.6 H Lymph % (Auto) 4.3 L [place] % (Auto) 11.1 H Eos % (Auto) 0.0 Baso % (Auto) 0.2 Lymph # (Auto) 0.4 L [place] # (Auto) 1.1 Eos # (Auto) 0.0 Baso # (Auto) 0.0 Abs Immat Gran (auto) 0.08 H Absolute Neuts (auto) 8.5 H Absolute Nucleated RBC 0.020 H Nucleated RBC % (auto) 0.2 Smear Tech's Comments VERIFIED PT 11.4 INR 1.0 APTT 27.7 ABG pH ABG pCO2 ABG pO2 ABG HCO3 ABG O2 Saturation ABG Base Excess VBG pH VBG pCO2 VBG pO2 VBG HCO3 VBG O2 Saturation VBG Base Excess Oxygen Given Sodium 133 L Potassium 6.2 H* Chloride 99 Carbon Dioxide 20 L Anion Gap 20 BUN 25 H Creatinine 3.40 H Estim Creat Clear Calc 33.3 Estimated GFR 19 POC Glucose Random Glucose 139 H Lactic Acid Lactic Acid Fup @ 2Hr Lactic Acid Fup @ 4Hr Calcium 8.3 L Magnesium 2.2 Total Bilirubin 0.7 Direct Bilirubin 0.2 AST 86 H ALT 119 H Alkaline Phosphatase 139 H Total Creatine Kinase 890 H Troponin I High Sens B-Natriuretic Peptide Total Protein 7.3 Albumin 4.4 Lipase 36 Urine Opiates Screen Ur Barbiturates Screen Ur Phencyclidine Scrn Ur Amphetamines Screen U Benzodiazepines Scrn Urine Cocaine Screen U Marijuana (THC) Screen COVID-19 (DON) COVID-19 Clin Com 06/01/20 06/01/20 06/01/20 12:13 12:13 12:17 WBC RBC Hgb Hct MCV MCH MCHC RDW Plt Count MPV Immature Gran % (Auto) Neut % (Auto) Lymph % (Auto) [place] % (Auto) Eos % (Auto) Baso % (Auto) Lymph # (Auto) [place] # (Auto) Eos # (Auto) Baso # (Auto) Abs Immat Gran (auto) Absolute Neuts (auto) Absolute Nucleated RBC Nucleated RBC % (auto) Smear Tech's Comments PT INR APTT ABG pH ABG pCO2 ABG pO2 ABG HCO3 ABG O2 Saturation ABG Base Excess VBG pH VBG pCO2 VBG pO2 VBG HCO3 VBG O2 Saturation VBG Base Excess Oxygen Given Sodium Potassium Chloride Carbon Dioxide Anion Gap BUN Creatinine Estim Creat Clear Calc Estimated GFR POC Glucose Random Glucose Lactic Acid 4.7 H* Lactic Acid Fup @ 2Hr Lactic Acid Fup @ 4Hr Calcium Magnesium Total Bilirubin Direct Bilirubin AST ALT Alkaline Phosphatase Total Creatine Kinase Troponin I High Sens 22.3 B-Natriuretic Peptide 72 Total Protein Albumin Lipase Urine Opiates Screen Ur Barbiturates Screen Ur Phencyclidine Scrn Ur Amphetamines Screen U Benzodiazepines Scrn Urine Cocaine Screen U Marijuana (THC) Screen COVID-19 (DON) Negative COVID-19 Clin Com See Note 06/01/20 06/01/20 06/01/20 12:32 13:40 14:46 WBC RBC Hgb Hct MCV MCH MCHC RDW Plt Count MPV Immature Gran % (Auto) Neut % (Auto) Lymph % (Auto) [place] % (Auto) Eos % (Auto) Baso % (Auto) Lymph # (Auto) [place] # (Auto) Eos # (Auto) Baso # (Auto) Abs Immat Gran (auto) Absolute Neuts (auto) Absolute Nucleated RBC Nucleated RBC % (auto) Smear Tech's Comments PT INR APTT ABG pH 7.33 L ABG pCO2 39 ABG pO2 52 L ABG HCO3 20 L ABG O2 Saturation 89.3 ABG Base Excess -5.5 VBG pH 7.16 L* VBG pCO2 60 VBG pO2 26 VBG HCO3 21 VBG O2 Saturation 52.2 VBG Base Excess -8.6 Oxygen Given 5 L Sodium Potassium Chloride Carbon Dioxide Anion Gap BUN Creatinine Estim Creat Clear Calc Estimated GFR POC Glucose Random Glucose Lactic Acid Lactic Acid Fup @ 2Hr Lactic Acid Fup @ 4Hr Calcium Magnesium Total Bilirubin Direct Bilirubin AST ALT Alkaline Phosphatase Total Creatine Kinase Troponin I High Sens B-Natriuretic Peptide Total Protein Albumin Lipase Urine Opiates Screen POSITIVE H Ur Barbiturates Screen Not Detected Ur Phencyclidine Scrn Not Detected Ur Amphetamines Screen Not Detected U Benzodiazepines Scrn Not Detected Urine Cocaine Screen Not Detected U Marijuana (THC) Screen Not Detected COVID-19 (DON) COVID-19 [employer] 06/01/20 06/01/20 06/01/20 15:05 16:10 17:24 WBC RBC Hgb Hct MCV MCH MCHC RDW Plt Count MPV Immature Gran % (Auto) Neut % (Auto) Lymph % (Auto) [place] % (Auto) Eos % (Auto) Baso % (Auto) Lymph # (Auto) [place] # (Auto) Eos # (Auto) Baso # (Auto) Abs Immat Gran (auto) Absolute Neuts (auto) Absolute Nucleated RBC Nucleated RBC % (auto) Smear Tech's Comments PT INR APTT ABG pH ABG pCO2 ABG pO2 ABG HCO3 ABG O2 Saturation ABG Base Excess VBG pH VBG pCO2 VBG pO2 VBG HCO3 VBG O2 Saturation VBG Base Excess Oxygen Given Sodium 134 L Potassium 6.5 H* Chloride 103 Carbon Dioxide 23 Anion Gap 15 BUN 26 H Creatinine 2.82 H Estim Creat Clear Calc 40.1 Estimated GFR 24 POC Glucose Random Glucose 105 Lactic Acid Lactic Acid Fup @ 2Hr 2.2 H* Lactic Acid Fup @ 4Hr 1.9 Calcium 7.5 L D Magnesium Total Bilirubin Direct Bilirubin AST ALT Alkaline Phosphatase Total Creatine Kinase Troponin I High Sens B-Natriuretic Peptide Total Protein Albumin Lipase Urine Opiates Screen Ur Barbiturates Screen Ur Phencyclidine Scrn Ur Amphetamines Screen U Benzodiazepines Scrn Urine Cocaine Screen U Marijuana (THC) Screen COVID-19 (DON) COVID-19 [employer] 06/01/20 06/02/20 06/02/20 19:41 01:12 01:16 WBC RBC Hgb Hct MCV MCH MCHC RDW Plt Count MPV Immature Gran % (Auto) Neut % (Auto) Lymph % (Auto) [place] % (Auto) Eos % (Auto) Baso % (Auto) Lymph # (Auto) [place] # (Auto) Eos # (Auto) Baso # (Auto) Abs Immat Gran (auto) Absolute Neuts (auto) Absolute Nucleated RBC Nucleated RBC % (auto) Smear Tech's Comments PT INR APTT ABG pH ABG pCO2 ABG pO2 ABG HCO3 ABG O2 Saturation ABG Base Excess VBG pH VBG pCO2 VBG pO2 VBG HCO3 VBG O2 Saturation VBG Base Excess Oxygen Given Sodium 138 Potassium 6.4 H* Chloride 105 Carbon Dioxide 24 Anion Gap 15 BUN 25 H Creatinine 2.53 H Estim Creat Clear Calc 44.7 Estimated GFR 27 POC Glucose 120 H Random Glucose 114 Lactic Acid Lactic Acid Fup @ 2Hr Lactic Acid Fup @ 4Hr Calcium 7.9 L Magnesium Total Bilirubin Direct Bilirubin AST ALT Alkaline Phosphatase Total Creatine Kinase Troponin I High Sens 59.6 H D B-Natriuretic Peptide Total Protein Albumin Lipase Urine Opiates Screen Ur Barbiturates Screen Ur Phencyclidine Scrn Ur Amphetamines Screen U Benzodiazepines Scrn Urine Cocaine Screen U Marijuana (THC) Screen COVID-19 (DON) COVID-19 Clin Com 06/02/20 06/02/20 06/02/20 02:03 05:13 05:13 WBC 7.2 RBC 3.46 L Hgb 10.7 L Hct 32.3 L D MCV 93.4 MCH 30.9 MCHC 33.1 RDW 14.3 Plt Count 163 D MPV 10.3 Immature Gran % (Auto) 0.4 Neut % (Auto) 82.9 H Lymph % (Auto) 6.5 L [place] % (Auto) 10.2 Eos % (Auto) 0.0 Baso % (Auto) 0.0 Lymph # (Auto) 0.5 L [place] # (Auto) 0.7 Eos # (Auto) 0.0 Baso # (Auto) 0.0 Abs Immat Gran (auto) 0.03 Absolute Neuts (auto) 6.0 Absolute Nucleated RBC 0.000 Nucleated RBC % (auto) 0.0 Smear Tech's Comments VERIFIED PT INR APTT ABG pH ABG pCO2 ABG pO2 ABG HCO3 ABG O2 Saturation ABG Base Excess VBG pH VBG pCO2 VBG pO2 VBG HCO3 VBG O2 Saturation VBG Base Excess Oxygen Given Sodium 140 140 Potassium 4.9 D 4.6 Chloride 105 107 Carbon Dioxide 25 25 Anion Gap 15 13 BUN 25 H 23 H Creatinine 2.16 H 1.83 H Estim Creat Clear Calc 52.4 61.8 Estimated GFR 32 39 POC Glucose Random Glucose 130 H 119 H Lactic Acid Lactic Acid Fup @ 2Hr Lactic Acid Fup @ 4Hr Calcium 7.9 L 7.7 L Magnesium Total Bilirubin 0.6 Direct Bilirubin 0.2 AST 92 H ALT 101 H Alkaline Phosphatase 102 D Total Creatine Kinase Troponin I High Sens B-Natriuretic Peptide Total Protein 5.9 L Albumin 3.6 Lipase Urine Opiates Screen Ur Barbiturates Screen Ur Phencyclidine Scrn Ur Amphetamines Screen U Benzodiazepines Scrn Urine Cocaine Screen U Marijuana (THC) Screen COVID-19 (DON) COVID-19 [employer] Com 06/02/20 10:23 WBC RBC Hgb Hct MCV MCH MCHC RDW Plt Count MPV Immature Gran % (Auto) Neut % (Auto) Lymph % (Auto) [place] % (Auto) Eos % (Auto) Baso % (Auto) Lymph # (Auto) [place] # (Auto) Eos # (Auto) Baso # (Auto) Abs Immat Gran (auto) Absolute Neuts (auto) Absolute Nucleated RBC Nucleated RBC % (auto) Smear Tech's Comments PT INR APTT ABG pH ABG pCO2 ABG pO2 ABG HCO3 ABG O2 Saturation ABG Base Excess VBG pH VBG pCO2 VBG pO2 VBG HCO3 VBG O2 Saturation VBG Base Excess Oxygen Given Sodium Potassium Chloride Carbon Dioxide Anion Gap BUN Creatinine Estim Creat Clear Calc Estimated GFR POC Glucose Random Glucose Lactic Acid Lactic Acid Fup @ 2Hr Lactic Acid Fup @ 4Hr Calcium Magnesium Total Bilirubin Direct Bilirubin AST ALT Alkaline Phosphatase Total Creatine Kinase Troponin I High Sens 46.9 H B-Natriuretic Peptide Total Protein Albumin Lipase Urine Opiates Screen Ur Barbiturates Screen Ur Phencyclidine Scrn Ur Amphetamines Screen U Benzodiazepines Scrn Urine Cocaine Screen U Marijuana (THC) Screen COVID-19 (DON) COVID-19 Clin Com Imaging Radiology Impressions: ITS Impressions Chest X-Ray 06/01/20 12:07 IMPRESSION: No significant acute parenchymal disease. Head CT 06/01/20 13:48 IMPRESSION: No acute intracranial pathology. Chest CT 06/01/20 14:04 IMPRESSION: No confluent pneumonitis identified. Regions of tree-in-bud configuration peripherally within the lower lobes bilaterally likely infectious or inflammatory in nature. There is also dependent atelectasis present. Prominent ascending thoracic aorta measuring 4 cm in diameter. Mild mediastinal and right hilar lymphadenopathy. Mental Status Exam Mental Status Exam Patient Appearance: Appropriate Patient Orientation: Person, Place, Time and Situation Level of Consciousness: Awake, Appropriate and Alert Patient Behavior: Appropriate and Anxious Mood Description: Anxious Affect Description: Anxious Ability to Follow Directions: Excellent Speech Pattern: Clear Thought Process: Intact Thought Content: positive for Intact Judgement: Fair Medications Medications Current Medications Generic Name Dose Route Start Last Admin Trade Name Freq PRN Reason Stop Dose Admin Acetaminophen 650 mg 06/01/20 22:32 Acetaminophen Supp 650 Mg Supp.Rect [facility] Q6H PRN Pain, Mild (Pain Scale 1-3) Albuterol Sulfate 2.5 mg 06/01/20 22:32 Albuterol Sulfate (0.083%) 2.5 Mg/3 Ml Vial.Neb INHALE Q4H PRN Shortness of Breath Buprenorphine/Naloxone 1 film 06/02/20 13:13 Buprenorphine/Naloxone 4/1 Mg Film SUBLINGUAL 06/02/20 13:14 ONCE ONE Docusate Sodium 100 mg 06/01/20 22:32 Docusate Sodium 100 Mg Capsule PO DAILY PRN Constipation Fluoxetine HCl 60 mg 06/02/20 09:00 06/02/20 09:10 Fluoxetine Hcl 20 Mg Capsule PO 60 mg DAILY SADIE Administration Heparin Sodium (Porcine) 5,000 unit 06/01/20 23:00 06/02/20 11:27 Heparin Sodium,Porcine 5,000 Unit/Ml Vial SUBCUT 5,000 unit Q12H SADIE Administration Sodium Chloride 1,000 mls @ 100 mls/hr 06/01/20 22:32 06/02/20 09:10 Ns IVCONT 100 mls/hr .Q10H SADIE Administration Piperacillin Sod/Tazobactam 50 mls @ 100 mls/hr 06/01/20 23:00 06/02/20 11:57 Sod 3.375 gm/ Sodium Chloride IV Infused Q6H SADIE Infusion Multivitamins/Vitamin C 1 tab 06/02/20 09:00 06/02/20 09:10 Multivitamin Tablet PO 1 tab DAILY SADIE Administration Omeprazole 20 mg 06/02/20 06:30 06/02/20 05:35 Omeprazole 20 Mg Capsule. PO 20 mg DAILY@0630 [facility] Administration Pharmacy Consult 1 each 06/01/20 12:06 Consult Rx Perform Med Rec MISCELLANE ONCE PRN Consult order Sodium Chloride 3 ml 06/02/20 00:00 06/02/20 09:10 0.9 % Sodium Chloride Flush 3 Ml Syringe IVFLUSH 3 ml QSHIFT SADIE Administration Allergies Allergies Allergy/AdvReac Type Severity Reaction Status Date / Time No Known Allergies Allergy Verified 06/01/20 12:06 Assessment & Plan Assessment & Plan (1) Opioid use disorder: Status: Acute Code(s): F11.99 - Opioid use, unspecified with unspecified opioid-induced disorder Recommendations: Will restart Suboxone--4mg now. followed by additional 4mg within an hour if he tolerates first dose 8mg this evening tomorrow morning can resume 16mg in AM as he was taking it outpatient Reports he does not need a bridge script as he has medication at home [facility] with [facility] reported as being [facility]07[facility]2020 Please ensure he has take home narcan at time of discharge Greater than 50% of the session was spent on counseling and/or coordination of care
--- NOTE | 2020-06-02 13:55 | MHC.CARE ---
Recovery Support note: Patient is a 54 year old [place] speaking male who presented [place] [facility] [place] using heroin and giving himself Narcan. Patient was medically admitted. This customs entry writer met with patient on the medical floor. Patient reports he is feeling better and is appreciative of the care being provided. Reports he moved from [place] in [place] to [place] and that he neglected to stay on top of scheduling his appointments and getting his prescriptions during the move. Patient states he attempted to cut up his Suboxone to get the amount he had to last longer however he ended up in withdrawal and relapsed after 10 years of sobriety. Patient reports the Suboxone has been very helpful throughout his Sobriety however he is interested in getting off of it. Patient acknowledges the risk involved in using street drugs and was informed that he could present to the ED to get Suboxone if he is every in a similar situation where he is contemplating relapse. Patient reports he is very well [facility] by the [facility], stating that he meets with his psychiatrist weekly and that the [facility] checks on him regularly. Offered patient information on additional supports and he declined, stating that the [facility] is on top of him and that it is almost overwhelming. Patient reports he plans to continue with the [facility] supports and will work with his psychiatrist regarding getting off the Suboxone. Discussed case with patient's RN.
--- NOTE | 2020-06-02 15:07 | MHC.CM.PN ---
PT REPORTS HE LIVES AT HOME WITH HIS AND IS INDEPENDENT WITH ALL CARE AND MOBILITY. PT USES A CPAP FOR DME AND HAS NO IN HOME OR COMMUNITY SERVICES. PT REPORTS HE HAS A HCP NAMING HIS TWO DAUGHTERS HIS AGENTS. PT REPORTS HE SEES A PCP AT [facility] [place] AND IS 100% SERVICE CONNECTED. CURRENT DC PLAN IS HOME WITH CARE TEAM RESOURCES PT WILL NEED ASSISTANCE WITH TRANSPORTATION AT DC
--- NOTE | 2020-06-02 16:10 | W.PM.IDCN ---
History of Present Illness Data of Consult Service Date: 06/02/20 Requesting physician: Emanuel Saini Primary Care Provider: Unknown Physician HPI Reason for consult: shortness of breath He presents with weakness and shortness of breath after injecting heroin He has cough,dry as well He has no nausea or vomiting CXR and CT chest show some tree in bud findings upper lobe Review of Systems Review of Systems: Yes all other systems are reviewed and are negative PMFSH Past Medical History Medical History ADHD GERD (gastroesophageal reflux disease) Hyperlipidemia Opiate abuse, episodic DIRK (obstructive sleep apnea) PTSD (post-traumatic stress disorder) Family History Family history: reviewed and not pertinent Social History Social History Household Members: Significant Other Housing: House Do you presently have visiting nurse or other home services: No Alcohol intake: current Alcohol intake frequency: a few times a week Smoking Status: Never smoker Use of substances other than those prescribed or required for medical reasons: Yes Substance Use Type: Heroin Substance Use Frequency: Recent Binge Last Used Substance: Just Prior to Admission Currently Displaying Signs/Symptoms of Drug Intoxication Withdrawal: No Any prior treatment program specific to substance use: Yes ([facility]) Do you feel safe in your current relationship?: No Current Relationship Advance Directives: No Advance Directives Information Provided: Yes Do you have thoughts of harming others: None Do you have a plan to hurt others: No Plan Recently lost weight without trying: No service: Yes Current occupational status: disabled Meds Allergies Allergy/AdvReac Type Severity Reaction Status Date / Time No Known Allergies Allergy Verified 06/01/20 12:06 Home Medications Medication Instructions Recorded Confirmed Type buprenorphine-naloxone [Suboxone] 2 tab SUBLINGUAL DAILY 06/01/20 06/01/20 History dextroamphetamine-amphetamine 60 mg PO DAILY 06/01/20 06/01/20 History [Adderall XR] ferrous sulfate 325 mg PO DAILY 06/01/20 06/01/20 History fluoxetine 60 mg PO DAILY 06/01/20 06/01/20 History ibuprofen 600 mg PO TID PRN 06/01/20 06/01/20 History multivitamin [Multivites] 1 tab PO DAILY 06/01/20 06/01/20 History olanzapine 15 mg PO BEDTIME 06/01/20 06/01/20 History omega 6-rgl-edr-fish oil [Fish Oil] 1 cap PO DAILY 06/01/20 06/01/20 History omeprazole 20 mg PO DAILY 06/01/20 06/01/20 History prazosin 3 mg PO BEDTIME PRN 06/01/20 06/01/20 History trazodone 50 mg PO BEDTIME PRN 06/01/20 06/01/20 History Physical Exam Vital Signs: Vital Signs: Last Vital Signs Temp 98.2 F 06/02/20 15:50 Pulse 92 06/02/20 15:50 Resp 18 06/02/20 15:50 BP 160/62 H 06/02/20 15:50 Pulse Ox 93 06/02/20 15:50 Body Mass Index 35.2 Const: General: cooperative and ill appearing Orientation/consciousness: oriented to person, oriented to place and oriented to time HENMT: Head: Yes normal to inspection Mouth: oropharynx normal Eyes: General: appearance normal, both eyes and all related structures Resp: Effort & Inspection: able to speak in complete sentences and prolonged expiratory phase Auscultation: bronchovesicular breath sounds Cardio: Rate: regular rate Rhythm: regular rhythm GI: Inspection: Yes normal to inspection : General: Yes no CVA tenderness Back/Spine/Pelvis: Back: no CVA tenderness Skin: General skin exam: no rashes or lesions noted Neuro: General: oriented to person, oriented to place and oriented to time Extrem: General: Yes normal to inspection Psych: Appearance: disheveled Speech and movement: Slowed speech present (Psych) Assessment and Plan (1) Opiate overdose: Qualifiers: Encounter type: initial encounter Injury intent: accidental or unintentional Qualified Code(s): T40.601A - Poisoning by unspecified narcotics, accidental (unintentional), initial encounter Status: Acute (2) Aspiration pneumonia: Qualifiers: Aspiration pneumonia type: unspecified Laterality: right Lung location: lower lobe of lung Qualified Code(s): J69.0 - Pneumonitis due to inhalation of food and vomit Problem details: He has probable CAP He could have MRSA There is possibility of weakness from drug use Less likely pneumonia related to HIV There is no lobar abscess like pneumonia as is associated with aspiration Status: Acute Ceftriaxone and Doxycycline,then po Ceftin and Doxycycline as outpatient for 7 days Check nares MRSA HIV test Legionella Results Labs CBC & Chem 7: 06/02/20 05:13 06/02/20 05:13 Labs: Short CBC 06/02/20 Range/Units 05:13 WBC 7.2 (4.8-10.8) X10*3/uL Hgb 10.7 L (14.0-18.0) g/dl Hct 32.3 L D (42-52) % Plt Count 163 D (160-400) X10*3/uL BMP 06/01/20 06/01/20 06/02/20 16:10 19:41 02:03 Sodium 134 L 138 140 Potassium 6.5 H* 6.4 H* 4.9 D Chloride 103 105 105 Carbon Dioxide 23 24 25 BUN 26 H 25 H 25 H Creatinine 2.82 H 2.53 H 2.16 H Calcium 7.5 L D 7.9 L 7.9 L 06/02/20 05:13 Sodium 140 Potassium 4.6 Chloride 107 Carbon Dioxide 25 BUN 23 H Creatinine 1.83 H Calcium 7.7 L Liver Function 06/02/20 Range/Units 05:13 Total Bilirubin 0.6 (0.0-1.0) mg/dL Direct Bilirubin 0.2 (0.0-0.5) mg/dL AST 92 H (5-37) U/L ALT 101 H (0-40) U/L Alkaline Phosphatase 102 D (39-117) U/L Albumin 3.6 (3.5-5.0) g/dL Microbiology Microbiology Results: Microbiology 06/01/20 12:31 Blood - Venous Blood Culture - Preliminary No growth after 24 hours. 06/01/20 12:12 Blood - Venous Blood Culture - Preliminary No growth after 24 hours.
--- NOTE | 2020-06-02 16:34 | HO.PM.IMPN ---
Subjective Subjective Date of Service: 06/02/20 Interval History: seen and examined this AM feeling better, but withdrawing requesting suboxone reports cough and weaknes ROS General - no fevers or chills, +weakness Cardiovascular - no chest pain Respiratory -+sob and cough Abdominal- no abdominal pain, nausea, vomiting, diarrhea Physical Exam Vital Signs: Vital Signs: Last Vital Signs Temp 98.2 F 06/02/20 15:50 Pulse 92 06/02/20 15:50 Resp 18 06/02/20 15:50 BP 160/62 H 06/02/20 15:50 Pulse Ox 93 06/02/20 15:50 Body Mass Index 35.2 Const: Other: General - no acute distress, appears comfortable Cardiovascular - regular rate and rhythm, S1-S2 Lungs - rhonchi Abdomen - soft, nontender, no rebound or guarding Extremities - no edema bilaterally Neuro - awake and alert, no focal deficits Objective Data Current Medications Generic Name Dose Route Start Last Admin Trade Name Freq PRN Reason Stop Dose Admin Acetaminophen 650 mg 06/01/20 22:32 Acetaminophen Supp 650 Mg Supp.Rect CA Q6H PRN Pain, Mild (Pain Scale 1-3) Albuterol Sulfate 2.5 mg 06/01/20 22:32 Albuterol Sulfate (0.083%) 2.5 Mg/3 Ml Vial.Neb INHALE Q4H PRN Shortness of Breath Buprenorphine/Naloxone 1 film 06/02/20 18:30 Buprenorphine/Naloxone 8/2 Mg Film SUBLINGUAL BID@0830,1630 SADIE Docusate Sodium 100 mg 06/01/20 22:32 Docusate Sodium 100 Mg Capsule PO DAILY PRN Constipation Fluoxetine HCl 60 mg 06/02/20 09:00 06/02/20 09:10 Fluoxetine Hcl 20 Mg Capsule PO 60 mg DAILY SADIE Administration Heparin Sodium (Porcine) 5,000 unit 06/01/20 23:00 06/02/20 11:27 Heparin Sodium,Porcine 5,000 Unit/Ml Vial SUBCUT 5,000 unit Q12H SADIE Administration Sodium Chloride 1,000 mls @ 100 mls/hr 06/01/20 22:32 06/02/20 09:10 Ns IVCONT 100 mls/hr .Q10H SADIE Administration Doxycycline Hyclate 100 mg/ 250 mls @ 166.67 mls/hr 12/04/20 16:30 Sodium Chloride IV Q12H [facility] Ceftriaxone Sodium 2 gm/ 50 mls @ 100 mls/hr 06/02/20 16:30 Sodium Chloride IV Q24H [facility] Multivitamins/Vitamin C 1 tab 06/02/20 09:00 06/02/20 09:10 Multivitamin Tablet PO 1 tab DAILY [facility] Administration Omeprazole 20 mg 06/02/20 06:30 06/02/20 05:35 Omeprazole 20 Mg Capsule. PO 20 mg DAILY@0630 [facility] Administration Pharmacy Consult 1 each 06/01/20 12:06 Consult Rx Perform Med Rec MISCELLANE ONCE PRN Consult order Sodium Chloride 3 ml 06/02/20 00:00 06/02/20 09:10 0.9 % Sodium Chloride Flush 3 Ml Syringe IVFLUSH 3 ml QSHIFT [facility] Administration Labs CBC & Chem 7: 06/02/20 05:13 06/02/20 05:13 Microbiology Microbiology Results: Microbiology 06/01/20 12:31 Blood - Venous Blood Culture - Preliminary No growth after 24 hours. 06/01/20 12:12 Blood - Venous Blood Culture - Preliminary No growth after 24 hours. Assessment and Plan (1) Sepsis: Status: Acute Assessment and Plan: This is a 54 yo M admitted for sepsis secondary to pneumonia. 1. Pneumonia causing severe sepsis (POA) and hypoxic resp failure rocephin/doxy Day #1 f/u cultures ID input appreciated wean o2 as tolerated 2. NASREEN with hyperK improved with fluids monitor daily 3. Abnormal LFTs stable, monitor 4. Elevated HS trop-I due to infectious / respiratory process flat without cp or ekg changes 5. Opiate dependence and withdrawal restart his suboxone Full Code DVT pptx, subcut. heparin
[2020-06-02] MEDS: cefTRIAXone sodium 2 GM in 0.9 % Sodium Chloride 50 ML IV (16:49)
[2020-06-02] MEDS: Doxycycline Hyclate 100 MG in 0.9 % Sodium Chloride 250 ML IV (17:35)
[2020-06-02] MEDS: Buprenorphine/Naloxone 8/2 mg FILM 1 FILM SUBLINGUAL (17:35)
[2020-06-03] VITALS (11 sets, daily range): BP systolic 158–196; BP diastolic 68–98; PULSE 85–105; RESP 18–91; TEMP 36.4–37; O2SAT 92–95
[2020-06-03] MEDS: Heparin Sodium,Porcine 5,000 UNIT/ML VIAL 5000 UNIT SUBCUT ×2 (01:44→11:07)
[2020-06-03] MEDS: 0.9 % Sodium Chloride Flush 3 ML SYRINGE IVFLUSH ×3 (01:44→15:44)
[2020-06-03] MEDS: Doxycycline Hyclate 100 MG in 0.9 % Sodium Chloride 250 ML 166.67 MG IV (05:17)
[2020-06-03] MEDS: Omeprazole 20 MG CAPSULE.DR PO (05:19)
[2020-06-03] MEDS: Acetaminophen 325 MG TABLET 650 MG PO ×2 (05:19→21:36)
[2020-06-03 07:33] LABS: Alanine Aminotransferase 73 U/L (0-40); Albumin Level 3.6 g/dL (3.5-5.0); Alkaline Phosphatase 91 U/L (39-117); Anion Gap 13 (12-20); Bilirubin Direct 0.2 mg/dL (0.0-0.5); Bilirubin Total 0.6 mg/dL (0.0-1.0); Blood Urea Nitrogen 17 mg/dL (9-16); Carbon Dioxide 25 mmol/L (22-29); Chloride 107 mmol/L (96-108); Creatinine Clr Calc Pharmacy 92.8; Estimated Glomerular Filt Rate > 60; Glucose Random 120 mg/dL (60-115); Potassium 4.1 mmol/l (3.3-5.1); Sodium 141 mmol/L (135-145); Total Protein 5.9 g/dL (6.5-8.0)
[2020-06-03] MEDS: FLUoxetine HCl 20 MG CAPSULE 60 MG PO (07:55)
[2020-06-03] MEDS: Multivitamin TABLET 1 TAB PO (07:55)
[2020-06-03] MEDS: Buprenorphine/Naloxone 8/2 mg FILM 1 FILM SUBLINGUAL ×2 (07:56→15:44)
[2020-06-03 08:10] LABS: Aspartate Amino Transferase 41 U/L (5-37); Calcium 8.2 mg/dL (8.4-10.2)
[2020-06-03 13:02] LABS: MRSA Nasal PCR NEGATIVE (Negative); SA Nasal PCR POSITIVE (Negative)
--- NOTE | 2020-06-03 14:10 | P.PNIM_ITS ---
Subjective Subjective Date of Service: 06/03/20 Interval History: seen and examined this morning Patient feels better but still getting short of breath on exertion. Denies fevers or chills ROS General - no fevers or chills Cardiovascular - no chest pain Respiratory - no shortness of breath or cough Abdominal- no abdominal pain, nausea, vomiting, diarrhea Physical Exam Vital Signs: Vital Signs: Last Vital Signs Temp 98 F 06/03/20 12:00 Pulse 90 06/03/20 12:00 Resp 91 H 06/03/20 12:00 BP 190/98 H 06/03/20 12:00 Pulse Ox 94 06/03/20 03:55 Body Mass Index 35.2 Const: Other: General - no acute distress, appears comfortable Cardiovascular - regular rate and rhythm, S1-S2 Lungs - diminished, trace wheezing Abdomen - soft, nontender, no rebound or guarding Extremities - no edema bilaterally Neuro - awake and alert, no focal deficits Objective Data Current Medications Generic Name Dose Route Start Last Admin Trade Name Freq PRN Reason Stop Dose Admin Acetaminophen 650 mg 06/01/20 22:32 Acetaminophen Supp 650 Mg Supp.Rect MD Q6H PRN Pain, Mild (Pain Scale 1-3) Albuterol Sulfate 2.5 mg 06/01/20 22:32 Albuterol Sulfate (0.083%) 2.5 Mg/3 Ml Vial.Neb INHALE Q4H PRN Shortness of Breath Albuterol Sulfate 2 puff 06/03/20 11:20 Albuterol Sulfate 90 Mcg 8 Gm Inhaler INHALE RQ6H PRN Shortness of Breath/Wheezing Buprenorphine/Naloxone 1 film 06/02/20 18:30 06/03/20 07:56 Buprenorphine/Naloxone 8/2 Mg Film SUBLINGUAL 1 film BID@0830,1630 SADIE Administration Docusate Sodium 100 mg 06/01/20 22:32 Docusate Sodium 100 Mg Capsule PO DAILY PRN Constipation Fluoxetine HCl 60 mg 06/02/20 09:00 06/03/20 07:55 Fluoxetine Hcl 20 Mg Capsule PO 60 mg DAILY SADIE Administration Heparin Sodium (Porcine) 5,000 unit 06/01/20 23:00 06/03/20 11:07 Heparin Sodium,Porcine 5,000 Unit/Ml Vial SUBCUT 5,000 unit Q12H SADIE Administration Doxycycline Hyclate 100 mg/ 250 mls @ 166.67 mls/hr 06/02/20 16:30 06/03/20 08:01 Sodium Chloride IV Infused Q12H [facility] Infusion Ceftriaxone Sodium 2 gm/ 50 mls @ 100 mls/hr 06/02/20 16:30 06/02/20 17:19 Sodium Chloride IV Infused Q24H [facility] Infusion Multivitamins/Vitamin C 1 tab 06/02/20 09:00 06/03/20 07:55 Multivitamin Tablet PO 1 tab DAILY SADIE Administration Omeprazole 20 mg 06/02/20 06:30 06/03/20 05:19 Omeprazole 20 Mg Capsule. PO 20 mg DAILY@0630 [facility] Administration Pharmacy Consult 1 each 06/01/20 12:06 Consult Rx Perform Med Rec MISCELLANE ONCE PRN Consult order Sodium Chloride 3 ml 06/02/20 00:00 06/03/20 07:55 0.9 % Sodium Chloride Flush 3 Ml Syringe IVFLUSH 3 ml QSHIFT [facility] Administration Labs CBC & Chem 7: 06/02/20 05:13 06/03/20 05:45 Microbiology Microbiology Results: Microbiology 06/01/20 12:31 Blood - Venous Blood Culture - Preliminary No growth after 24 hours. 06/01/20 12:12 Blood - Venous Blood Culture - Preliminary No growth after 24 hours. Assessment and Plan (1) Sepsis: Status: Acute Assessment and Plan: This is a 54 yo M admitted for sepsis secondary to pneumonia. 1. Pneumonia causing severe sepsis (POA) and hypoxic resp failure o2 requirments improved rocephin/doxy Day #2 f/u cultures ID input appreciated wean o2 as tolerated 2. NASREEN with hyperK improved with fluids monitor daily 3. Abnormal LFTs stable, monitor 4. Elevated HS trop-I due to infectious / respiratory process flat without cp or ekg changes 5. Opiate dependence and withdrawal suboxone 6. HTN reports he was to be started on antihypertensives, but hasnt yet. will start norvasc 5mg Full Code DVT pptx, subcut. heparin dispo: home tomorrow on po antibiotics
[2020-06-03] MEDS: cefTRIAXone sodium 2 GM in 0.9 % Sodium Chloride 50 ML IV (15:40)
[2020-06-03] MEDS: amLODIPine Besylate 5 MG TABLET PO (15:44)
[2020-06-03] MEDS: Doxycycline Hyclate 100 MG in 0.9 % Sodium Chloride 250 ML IV (17:10)
[2020-06-04] MEDS: Heparin Sodium,Porcine 5,000 UNIT/ML VIAL 5000 UNIT SUBCUT (00:49)
[2020-06-04] MEDS: 0.9 % Sodium Chloride Flush 3 ML SYRINGE IVFLUSH ×2 (00:50→08:08)
[2020-06-04 02:19] VITALS: BP 181/105; PULSE 80
[2020-06-04] MEDS: Ketorolac Tromethamine 15 MG/ML VIAL IVPUSH (02:19)
[2020-06-04] MEDS: hydrALAZINE HCl 20 MG/ML VIAL 5 MG IVPUSH (02:19)
[2020-06-04 04:00] VITALS: BP 180/98; PULSE 83; RESP 20; TEMP 36.8; O2SAT 95
[2020-06-04] MEDS: Doxycycline Hyclate 100 MG in 0.9 % Sodium Chloride 250 ML IV (05:31)
[2020-06-04] MEDS: Omeprazole 20 MG CAPSULE.DR PO (05:31)
[2020-06-04 05:44] VITALS: BP 132/79; PULSE 79
--- NOTE | 2020-06-04 06:38 | MHC.PIE ---
P Patient's BP 196/95, c/o 8/10 headache. I Patient assessed, stating headache has been constant. Dr. Nguyen notified. Hydralazine 5 mg IV for elevated BP, Toradol IV ordered for headache. E- Patient reassessed, BP 132/79, headache has resolved. Patient sleeping, stating that he feels much better. Will continue to monitor.
[2020-06-04 08:00] VITALS: BP 160/94; PULSE 94; RESP 18; TEMP 36.4; O2SAT 98
[2020-06-04] MEDS: FLUoxetine HCl 20 MG CAPSULE 60 MG PO (08:08)
[2020-06-04] MEDS: Buprenorphine/Naloxone 8/2 mg FILM 1 FILM SUBLINGUAL (08:08)
[2020-06-04] MEDS: Multivitamin TABLET 1 TAB PO (08:08)
[2020-06-04 08:11] VITALS: BP 160/94; PULSE 91
[2020-06-04] MEDS: amLODIPine Besylate 5 MG TABLET PO (08:11)
--- NOTE | 2020-06-04 09:14 | P.DS_ITS ---
DS: Providers Provider Date of admission: 06/01/20 20:31 Primary care physician: Unknown Physician Consults: 06/01/20 19:46 Consult to Care Team Routine Comment: Reason for consultation: opiate abuse 06/02/20 05:42 Consult to Infectious Diseases Routine Consulting Provider: Quiana Noriega Reason for consultation: Sepsis Has provider been notified: No 06/02/20 11:49 Consult to Psychiatry Routine Consulting Provider: Ibeth Duvall Reason for consultation: suboxone withdrawal DS: Diagnosis Discharge Diagnosis (1) Sepsis: Status: Acute (2) CAP (community acquired pneumonia): Status: Acute (3) Acute renal failure: Status: Acute (4) Opiate overdose: Status: Acute (5) Opioid use disorder: Status: Acute DS: Medications Discharge Medications Home Medications: Home Medications Medication Instructions Recorded Confirmed buprenorphine-naloxone 2 tab SUBLINGUAL DAILY 06/01/20 06/01/20 dextroamphetamine-amphetamine 60 mg PO DAILY 06/01/20 06/01/20 [Adderall XR] ferrous sulfate 325 mg PO DAILY 06/01/20 06/01/20 fluoxetine 60 mg PO DAILY 06/01/20 06/01/20 ibuprofen 600 mg PO TID PRN 06/01/20 06/01/20 multivitamin 1 tab PO DAILY 06/01/20 06/01/20 olanzapine 15 mg PO BEDTIME 06/01/20 06/01/20 omega 9-[id number]-hmt-fish oil [Fish Oil] 1 cap PO DAILY 06/01/20 06/01/20 omeprazole 20 mg PO DAILY 06/01/20 06/01/20 prazosin 3 mg PO BEDTIME PRN 06/01/20 06/01/20 trazodone 50 mg PO BEDTIME PRN 06/01/20 06/01/20 Previous Rx's Medication Instructions Recorded amlodipine 5 mg PO DAILY #30 tab 06/04/20 cefuroxime axetil 500 mg PO Q12H #10 tab 06/04/20 doxycycline hyclate 100 mg PO BID #10 cap 06/04/20 DS: Summary Hospital Course Hospital Course: Patient presented with acute respiratory failure with hypoxia, sepsis, NASREEN and pneumonia secondary to heroin overdose. He was treated with supplemental oxygen, IV antibiotics and IV fluids with resolution of his symptoms. He will be transitioned to oral cefuroxime and doxycycline for 5 more days. His hospital course was further complicated by elevated blood pressure and he was started on Norvasc 5 mg which will likely have to be up titrated. Additionally, patient went into opiate withdrawal and was started on Suboxone which he has been on in the outpatient setting and will continue this. Time Spent with Patient Time attestation: Total time spent providing and/or coordinating discharge services: Physical Exam Vital Signs: Vital Signs: Last Vital Signs Temp 97.5 F 06/04/20 08:00 Pulse 91 06/04/20 08:11 Resp 18 06/04/20 08:00 BP 160/94 H 06/04/20 08:11 Pulse Ox 98 06/04/20 08:00 Body Mass Index 35.2 General - no acute distress, appears comfortable Cardiovascular - regular rate and rhythm, S1-S2 Lungs - normal respiratory effort, clear to auscultation bilaterally, no wheezing Abdomen - soft, nontender, no rebound or guarding Extremities - no edema bilaterally Neuro - awake and alert, no focal deficits DS: Data Data Completed and Pending Labs on day of discharge: CT lung IMPRESSION: No confluent pneumonitis identified. Regions of tree-in-bud configuration peripherally within the lower lobes bilaterally likely infectious or inflammatory in nature. There is also dependent atelectasis present. Prominent ascending thoracic aorta measuring 4 cm in diameter. Mild mediastinal and right hilar lymphadenopathy. CT head IMPRESSION: No acute intracranial pathology. Laboratory Last Values WBC 7.2 X10*3/uL (4.8-10.8) 06/02/20 05:13 RBC 3.46 X10*6/uL (4.60-5.80) L 06/02/20 05:13 Hgb 10.7 g/dl (14.0-18.0) L 06/02/20 05:13 Hct 32.3 % (42-52) L D 06/02/20 05:13 MCV 93.4 fL (80-98) 06/02/20 05:13 MCH 30.9 pg (27.0-33.0) 06/02/20 05:13 MCHC 33.1 g/dl (31.0-36.0) 06/02/20 05:13 RDW 14.3 % (11.0-16.0) 06/02/20 05:13 Plt Count 163 X10*3/uL (160-400) D 06/02/20 05:13 MPV 10.3 fL (9.4-12.4) 06/02/20 05:13 Immature Gran % (Auto) 0.4 % (0.0-0.4) 06/02/20 05:13 Neut % (Auto) 82.9 % (45-73) H 06/02/20 05:13 Lymph % (Auto) 6.5 % (20-40) L 06/02/20 05:13 [place]son % (Auto) 10.2 % (2-11) 06/02/20 05:13 Eos % (Auto) 0.0 % (0-4) 06/02/20 05:13 Baso % (Auto) 0.0 % (0-2) 06/02/20 05:13 Lymph # (Auto) 0.5 X10*3/uL (1.2-4.9) L 06/02/20 05:13 Woodson # (Auto) 0.7 X10*3/uL (0.1-1.2) 06/02/20 05:13 Eos # (Auto) 0.0 X10*3/uL (0.0-0.4) 06/02/20 05:13 Baso # (Auto) 0.0 X10*3/uL (0.0-0.2) 06/02/20 05:13 Abs Immat Gran (auto) 0.03 X10*3/uL (0.00-0.03) 06/02/20 05:13 Absolute Neuts (auto) 6.0 X10*3/uL (2.0-8.3) 06/02/20 05:13 Absolute Nucleated RBC 0.000 X10*3/uL (0.0-0.012) 06/02/20 05:13 Nucleated RBC % (auto) 0.0 /100WBC (0.0-0.2) 06/02/20 05:13 Smear Tech's Comments VERIFIED 06/02/20 05:13 PT 11.4 SEC (10.8-13.0) 06/01/20 12:13 INR 1.0 (0.9-1.1) 06/01/20 12:13 APTT 27.7 SEC (24.1-38.0) 06/01/20 12:13 ABG pH 7.33 (7.35-7.45) L 06/01/20 13:40 ABG pCO2 39 mmhg (32-45) 06/01/20 13:40 ABG pO2 52 mmhg (83-108) L 06/01/20 13:40 ABG HCO3 20 mmol/l (22-26) L 06/01/20 13:40 ABG O2 Saturation 89.3 % 06/01/20 13:40 ABG Base Excess -5.5 06/01/20 13:40 VBG pH 7.16 (7.32-7.43) L* 06/01/20 12:32 VBG pCO2 60 mmhg 06/01/20 12:32 VBG pO2 26 mmhg 06/01/20 12:32 VBG HCO3 21 mmol/L 06/01/20 12:32 VBG O2 Saturation 52.2 % 06/01/20 12:32 VBG Base Excess -8.6 mmol/L 06/01/20 12:32 Oxygen Given 5 L 06/01/20 13:40 Sodium 141 mmol/L (135-145) 06/03/20 05:45 Potassium 4.1 mmol/l (3.3-5.1) 06/03/20 05:45 Chloride 107 mmol/L (96-108) 06/03/20 05:45 Carbon Dioxide 25 mmol/L (22-29) 06/03/20 05:45 Anion Gap 13 (-20) 06/03/20 05:45 BUN 17 mg/dL (9-16) H 06/03/20 05:45 Creatinine 1.22 mg/dL (0.5-1.4) 06/03/20 05:45 Estim Creat Clear Calc 92.8 06/03/20 05:45 Estimated GFR > 60 06/03/20 05:45 POC Glucose 120 mg/dL (60-115) H 06/02/20 01:12 Random Glucose 120 mg/dL (60-115) H 06/03/20 05:45 Lactic Acid 4.7 mmol/L (0.5-2.0) H* 06/01/20 12:13 Lactic Acid Fup @ 2Hr 2.2 mmol/L (0.5-2.0) H* 06/01/20 15:05 Lactic Acid Fup @ 4Hr 1.9 mmol/L (0.5-2.0) 06/01/20 17:24 Calcium 8.2 mg/dL (8.4-10.2) L D 06/03/20 05:45 Magnesium 2.2 mg/dL (1.6-2.6) 06/01/20 12:12 Total Bilirubin 0.6 mg/dL (0.0-1.0) 06/03/20 05:45 Direct Bilirubin 0.2 mg/dL (0.0-0.5) 06/03/20 05:45 AST 41 U/L (5-37) H D 06/03/20 05:45 ALT 73 U/L (0-40) H 06/03/20 05:45 Alkaline Phosphatase 91 U/L (39-117) 06/03/20 05:45 Total Creatine Kinase 890 U/L (38-174) H 06/01/20 12:12 Troponin I High Sens 46.9 ng/L (<3.5-35.0) H 06/02/20 10:23 B-Natriuretic Peptide 72 pg/mL (<100) 06/01/20 12:13 Total Protein 5.9 g/dL (6.5-8.0) L 06/03/20 05:45 Albumin 3.6 g/dL (3.5-5.0) 06/03/20 05:45 Lipase 36 U/L (8-78) 06/01/20 12:12 Nasal Screen MRSA (PCR) NEGATIVE (Negative) 06/02/20 17:46 Nasal S. aureus Screen POSITIVE (Negative) A 06/02/20 17:46 Nasal MRSA/S.aureus Interp SEE NOTE 06/02/20 17:46 Urine Opiates Screen POSITIVE (Not Detect) H 06/01/20 14:46 Ur Barbiturates Screen Not Detected (Not Detect) 06/01/20 14:46 Ur Phencyclidine Scrn Not Detected (Not Detect) 06/01/20 14:46 Ur Amphetamines Screen Not Detected (Not Detect) 06/01/20 14:46 U Benzodiazepines Scrn Not Detected (Not Detect) 06/01/20 14:46 Urine Cocaine Screen Not Detected (Not Detect) 06/01/20 14:46 U Marijuana (THC) Screen Not Detected (Not Detect) 06/01/20 14:46 COVID-19 (DON) Negative (Negative) 06/01/20 12:17 COVID-19 Clin Com See Note 06/01/20 12:17 Preliminary micro results at discharge 06/01/20 12:31 Blood Culture - Preliminary Blood - Venous No growth after 48 hours. 06/01/20 12:12 Blood Culture - Preliminary Blood - Venous No growth after 48 hours. Discharge Plan Discharge Patient Disposition: Home, Self-Care Referrals: Physician,Unknown [Primary Care Provider] - Discharge Medications: New amlodipine 5 mg Tablet 5 mg PO DAILY Qty: 30 RF: 0 cefuroxime axetil 500 mg tablet 500 mg PO Q12H Qty: 10 RF: 0 doxycycline hyclate 100 mg capsule 100 mg PO BID Qty: 10 RF: 0 Continued multivitamin Tablet 1 tab PO DAILY RF: 0 prazosin 1 mg Capsule 3 mg PO BEDTIME PRN (Reason: Insomnia) RF: 0 trazodone 100 mg Tablet 50 mg PO BEDTIME PRN (Reason: Insomnia) RF: 0 ferrous sulfate 325 mg (65 mg iron) Tablet 325 mg PO DAILY RF: 0 omeprazole 20 mg Capsule,Delayed Release(Dr/Ec) 20 mg PO DAILY RF: 0 olanzapine 15 mg Tablet 15 mg PO BEDTIME RF: 0 ibuprofen 600 mg Tablet 600 mg PO TID PRN (Reason: Pain) RF: 0 dextroamphetamine-amphetamine [Adderall XR] 30 mg Capsule,Extended Release 24hr 60 mg PO DAILY RF: 0 fluoxetine 20 mg Capsule 60 mg PO DAILY RF: 0 buprenorphine-naloxone 8-2 mg Tablet, Sublingual 2 tab SUBLINGUAL DAILY RF: 0 omega 0-rlr-ppb-fish oil [Fish Oil] 1,000 mg (120 mg-180 mg) Capsule 1 cap PO DAILY RF: 0 Discharge Orders: Discharge Order (Routine); Ordered 06/04/20 Ordered By: Emanuel Saini Diet: advance to usual diet Activity on Discharge: As tolerated Visit Report Forms: Patient Portal Discharge page Care Plan Goals: To stay healthy and out of the hospital. Health Concerns: Heroin overdose Pneumonia Hypertension Plan of Treatment: Heroin overdose - f/u with your suboxone clinic for further treatment Pneumonia - Take antibiotics for 5 more days Hypertension - Your blood pressure has been elevated. You have been started on Norvasc 5mg daily. You may need your dose adjusted up or down. Follow up with your primary care doctor for further treatment.
--- NOTE | 2020-06-04 09:32 | MHC.CM.PN ---
Pt being discharged home today with no services. Pt reports he can wear what he has on despite it being very cold. Pt reports he does not have transportation. Pt does not qualify for a chair van or ambulance. CM attempted to utilize [employer] however it was not working properly. Pt will be provided with a taxi voucher.
[2020-06-05 08:03] LABS: HIV AB/AG Nonreactive (Nonreactive); HIV Num 1 0.16 S/CO (0.00-0.99)
[2020-06-07 01:47] LABS: Legionella Ag Urine Not Detected (Not Detected)
== END 2020-06-04 10:53 | disposition home or self-care (01) | DRG 871 ==
LOC: HO.ED 18:40 → HO.IMC 22:04
PROVIDERS: Emergency Medicine; Internal Medicine; Physician Assistant Medical; Admitting Provider Internal Medicine; Emergency Provider Internal Medicine; Visit Provider Family Medicine
DX: A41.9 Sepsis, unspecified organism (principal); J96.01 Acute respiratory failure with hypoxia; J69.0 Pneumonitis due to inhalation of food and vomit; N17.9 Acute kidney failure, unspecified; F11.23 Opioid dependence with withdrawal; T40.1X1A Poisoning by heroin, accidental (unintentional), initial encounter; Y92.9 Unspecified place or not applicable; F90.9 Attention-deficit hyperactivity disorder, unspecified type; Z20.828 Contact with and (suspected) exposure to other viral communicable diseases; E87.5 Hyperkalemia; G47.33 Obstructive sleep apnea (adult) (pediatric); Z79.1 Long term (current) use of non-steroidal anti-inflammatories (NSAID); Z79.899 Other long term (current) drug therapy
CPT/HCPCS: 36415; 70450; 71045; 71250; 80048; 80076; 80307; 82550; 82803; 82947; 83605; 83690; 83735; 83880; 84484; 85025; 85610; 85730; 87040; 87389; 87449; 87635; 87640; 87641; 93005; 94640; 94660; 96361; 96365; 96367; 96375; 96376; 99285; 99291; J0573; J0574; J0610; J0696; J1885; J2405; J2543

== ENCOUNTER 2020-08-08 00:37 | Inpatient (IN) | payer OTHER, SELFPAY ==
[2020-08-08] VITALS (19 sets, daily range): BP systolic 113–202; BP diastolic 53–114; PULSE 83–110; RESP 16–23; TEMP 36.4–37.1; O2SAT 92–97; BMI 39.3
--- NOTE | ~2020-08-08 | XR_ITS ---
EXAMINATION: CHEST 1 VIEW CLINICAL INFORMATION: Shortness of breath. COMPARISON: 06/01/2020. TECHNIQUE: An AP view of the chest is provided. FINDINGS: The cardiac silhouette is not enlarged. The mediastinal and hilar contours are unremarkable. There are neither pleural effusions nor pneumothoraces. There is stable elevation to the right hemidiaphragm. There are no consolidations. The osseous structures are stable. XR/XR chest 1V IMPRESSION: No evidence for acute disease.
--- NOTE | 2020-08-08 01:28 | ECG_ITS ---
Test Reason : WITHDRAWL Blood Pressure : / mmHG Vent. Rate : 112 BPM Atrial Rate : 112 BPM P-R Int : 160 ms QRS Dur : 090 ms QT Int : 344 ms P-R-T Axes : 051 -40 024 degrees QTc Int : 469 ms Sinus tachycardia Left axis deviation Abnormal ECG When compared with ECG of 01-JUN-2020 12:01, No significant change was found Referred By: Tony Ramos Electronically Signed By:HAN COYLE
--- NOTE | 2020-08-08 01:34 | ED.MEDCLEAR ---
HPI - Medical Clearance General Chief complaint: Medical Clearance Stated complaint: etoh Time Seen by Provider: 08/08/20 01:20 Source: patient, EMS and police Mode of arrival: EMS Limitations: no limitations History of Present Illness HPI Narrative: Patient alcoholic drinks about 0.5 gal of Mariano Beam daily for last 4 months had history of DTs in the past if he does not drink for more than 4 hours and also had seizures in the past. Patient had his family dispute and hands in police custody. Patient tachycardic at this time saturating 88% at room air with history of sleep apnea MD complaint: medical clearance requested Alleged Intoxication: Yes Traumatic Symptoms: denies traumatic injury Related Information Home Medications Medication Instructions Recorded Confirmed buprenorphine-naloxone 2 tab SUBLINGUAL DAILY 06/01/20 06/01/20 dextroamphetamine-amphetamine 60 mg PO DAILY 06/01/20 06/01/20 [Adderall XR] ferrous sulfate 325 mg PO DAILY 06/01/20 06/01/20 fluoxetine 60 mg PO DAILY 06/01/20 06/01/20 ibuprofen 600 mg PO TID PRN 06/01/20 06/01/20 multivitamin 1 tab PO DAILY 06/01/20 06/01/20 olanzapine 15 mg PO BEDTIME 06/01/20 06/01/20 omega 5-xfp-qtd-fish oil [Fish Oil] 1 cap PO DAILY 06/01/20 06/01/20 omeprazole 20 mg PO DAILY 06/01/20 06/01/20 prazosin 3 mg PO BEDTIME PRN 06/01/20 06/01/20 trazodone 50 mg PO BEDTIME PRN 06/01/20 06/01/20 Previous Rx's Medication Instructions Recorded amlodipine 5 mg PO DAILY #30 tab 06/04/20 cefuroxime axetil 500 mg PO Q12H #10 tab 06/04/20 doxycycline hyclate 100 mg PO BID #10 cap 06/04/20 Allergies Allergy/AdvReac Type Severity Reaction Status Date / Time No Known Allergies Allergy Verified 06/01/20 12:06 Review of Systems Review of Systems: Constitutional : No Weight loss, No Fever, No Chills ENT/Mouth : No sore throat, No Rhinorrhea Eyes: No Eye Pain, No Swelling Cardiovascular : No Chest Pain, no palpitations Respiratory : +Cough, No Sputum, no shortness of breath Gastrointestinal : no Nausea, No Vomiting, No Diarrhea, No abdominal Pain, no black stools Genitourinary : No Dysuria, No Urinary Frequency Musculoskeletal : No joint pain, No Myalgias, No Joint Swelling Skin : No Skin Lesions, No rash Neuro : No Weakness, No Numbness, No Dizziness, No Headache Psych : No Anxiety/Panic, No Depression Heme/Lymph: No Bruising, No Lymphadenopathy Endocrine : No Polyuria, No Polydipsia All other systems reviewed and are negative [facility] Past Medical History Medical History ADHD Aspiration pneumonia Community acquired bacterial pneumonia GERD (gastroesophageal reflux disease) Hyperlipidemia Opiate abuse, episodic DIRK (obstructive sleep apnea) PTSD (post-traumatic stress disorder) Social History Social History Household Members: Significant Other Housing: House Alcohol intake: current Alcohol intake frequency: a few times a week Smoking Status: Never smoker Substance Use Type: Heroin Advance Directives: No Advance Directives Information Provided: No service: Yes Current occupational status: disabled Physical Exam Vital Signs: Vital Signs: Last Vital Signs Temp 98.8 F 08/08/20 00:46 Pulse 109 H 08/08/20 01:45 Resp 17 08/08/20 01:45 BP 162/104 H 08/08/20 01:45 Pulse Ox 95 08/08/20 01:45 Body Mass Index 39.3 Const: General: well developed, alert, awake, Physically active and anxious Nutritional Appearance: average body habitus Orientation/consciousness: patient oriented x3 Limitations: no limitations HENMT: Head: Yes normal to inspection, Yes normocephalic and Yes atraumatic Ears: hearing grossly normal bilaterally General nose exam: Normal external nose present Mouth: Normal oral and palatal mucosa present Throat: Yes posterior oropharynx normal Eyes: General: appearance normal, both eyes and all related structures Conjunctivae: conjunctivae normal Sclerae: sclerae normal Corneas: corneas normal Pupils: Equal, round and reactive pupils present Neck: Neck: Yes normal visual inspection, Yes full ROM, No tender and Yes no JVD Chest: Chest palpation & inspection: normal palpation of entire chest wall Resp: Effort & Inspection: normal respiratory effort Auscultation: clear to auscultation bilaterally, no crackles, no rales, no rhonchi and no wheezes Cardio: Jugular venous distension: no JVD Palpation: normal PMI Rate: tachycardic Rhythm: regular rhythm Heart sounds: S1 normal heart sound present and S2 normal heart sound present Peripheral pulses: Peripheral pulses 2+ throughout GI: Other: Superficial scratch [place] on left side of abdomen also the tianna off small Hand Inspection: Yes normal to inspection Palpation (GI): Soft to palpation and nontender : General: Yes no CVA tenderness Back/Spine/Pelvis: Back: no CVA tenderness Cervical Spine: cervical ROM normal Thoracic/Lumbar Spine: thoracic and lumbar spine normal to inspection Skin: Full body images: 1. Scratch [place] Neuro: General: patient oriented x3, moves all extremities, no focal motor deficits and CN's II-XI intact bilaterally Cranial nerves: Yes Equal, round and reactive pupils present Extrem: General: Yes normal to inspection, Yes full ROM, Yes no calf tenderness and No pedal edema Course Course Course Narrative: Patient alcoholic in police custody with early features of withdrawal at this time patient would like go to detox at this time patient is tachycardic and hypoxic will start with Ativan IV push wait for the labs will check for COVID-19 MDM - Medical Clearance MDM Narrative Medical decision making narrative: Patient alcoholic likely goes to DT's at this time asking for medical clearance to go to police patient is not medically cleared at this time because of hypoxia and tachycardia will give him Ativan IV fluids check labs. Patient sign out to Dr. Morton to follow labs and possible medical clearance Lab Data Result diagrams: 08/08/20 01:37 08/08/20 01:37 Labs: Lab Results 08/08/20 08/08/20 Range/Units 01:37 01:42 WBC 5.0 (4.8-10.8) X10*3/uL RBC 4.67 D (4.60-5.80) X10*6/uL Hgb 14.5 D (14.0-18.0) g/dl Hct 42.2 D (42-52) % MCV 90.4 (80-98) fL MCH 31.0 (27.0-33.0) pg MCHC 34.4 (31.0-36.0) g/dl RDW 12.8 (11.0-16.0) % Plt Count 237 D (160-400) X10*3/uL MPV 9.1 L (9.4-12.4) fL Immature Gran % (Auto) 0.2 (0.0-0.4) % Neut % (Auto) 70.4 (45-73) % Lymph % (Auto) 16.5 L (20-40) % Verm[place] % (Auto) 12.1 H (2-11) % Eos % (Auto) 0.2 (0-4) % Baso % (Auto) 0.6 (0-2) % Lymph # (Auto) 0.8 L (1.2-4.9) X10*3/uL [place] # (Auto) 0.6 (0.1-1.2) X10*3/uL Eos # (Auto) 0.0 (0.0-0.4) X10*3/uL Baso # (Auto) 0.0 (0.0-0.2) X10*3/uL Abs Immat Gran (auto) 0.01 (0.00-0.03) X10*3/uL Absolute Neuts (auto) 3.5 (2.0-8.3) X10*3/uL Absolute Nucleated RBC 0.000 (0.0-0.012) X10*3/uL Nucleated RBC % (auto) 0.0 (0.0-0.2) /100WBC Specimen Comment DELAY Discharge Plan Discharge Clinical Impression: Alcohol intoxication Qualifiers: Complication of substance-induced condition: uncomplicated Qualified Code(s): F10.920 - Alcohol use, unspecified with intoxication, uncomplicated Prescriptions: No Action multivitamin Tablet 1 tab PO DAILY RF: 0 prazosin 1 mg Capsule 3 mg PO BEDTIME PRN (Reason: Insomnia) RF: 0 trazodone 100 mg Tablet 50 mg PO BEDTIME PRN (Reason: Insomnia) RF: 0 ferrous sulfate 325 mg (65 mg iron) Tablet 325 mg PO DAILY RF: 0 omeprazole 20 mg Capsule,Delayed Release(Dr/Ec) 20 mg PO DAILY RF: 0 olanzapine 15 mg Tablet 15 mg PO BEDTIME RF: 0 ibuprofen 600 mg Tablet 600 mg PO TID PRN (Reason: Pain) RF: 0 dextroamphetamine-amphetamine [Adderall XR] 30 mg Capsule,Extended Release 24hr 60 mg PO DAILY RF: 0 fluoxetine 20 mg Capsule 60 mg PO DAILY RF: 0 buprenorphine-naloxone 8-2 mg Tablet, Sublingual 2 tab SUBLINGUAL DAILY RF: 0 omega 8-gpf-aac-fish oil [Fish Oil] 1,000 mg (120 mg-180 mg) Capsule 1 cap PO DAILY RF: 0 amlodipine 5 mg Tablet 5 mg PO DAILY Qty: 30 RF: 0 cefuroxime axetil 500 mg tablet 500 mg PO Q12H Qty: 10 RF: 0 doxycycline hyclate 100 mg capsule 100 mg PO BID Qty: 10 RF: 0
[2020-08-08 01:42] LABS: MANUAL DIFF FLAG NO
[2020-08-08 01:43] LABS: Basophils Percent Auto 0.6 % (0-2); Eosinophils Percent Auto 0.2 % (0-4); Hematocrit 42.2 % (42-52); Hemoglobin 14.5 g/dl (14.0-18.0); Imm Gran Abs Auto 0.01 X10*3/uL (0.00-0.03); Imm Gran Pct Auto 0.2 % (0.0-0.4); Lymphocytes Absolute Auto 0.8 X10*3/uL (1.2-4.9); Lymphocytes Percent Auto 16.5 % (20-40); Mean Corpuscular HGB Conc 34.4 g/dl (31.0-36.0); Mean Corpuscular Volume 90.4 fL (80-98); Mean Platelet Volume 9.1 fL (9.4-12.4); Monocytes Absolute Auto 0.6 X10*3/uL (0.1-1.2); Monocytes Percent Auto 12.1 % (2-11); Neutrophils Absolute Auto 3.5 X10*3/uL (2.0-8.3); Neutrophils Percent Auto 70.4 % (45-73); Platelet Count 237 X10*3/uL (160-400); Red Blood Count 4.67 X10*6/uL (4.60-5.80); Red Cell Distribution Width 12.8 % (11.0-16.0)
[2020-08-08 01:44] LABS: Delay - Chemistry DELAY
[2020-08-08] MEDS: LORazepam 2 MG/ML VIAL IVPUSH (01:44)
[2020-08-08] MEDS: 0.9 % Sodium Chloride 1,000 ML 999 ML IVCONT ×2 (01:44→02:42)
[2020-08-08] MEDS: Magnesium Sulfate/H2O 2 GM/50 ML PIGGYBACK IV (01:51)
[2020-08-08 01:52] LABS: INTERNATIONAL NORM RATIO 1.1 (0.9-1.1); Prothrombin Time 13.3 SEC (10.8-13.0)
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
[2020-08-08 02:58] LABS: COVID-19 Test Negative (Negative)
[2020-08-08 03:21] LABS: Alanine Aminotransferase 128 U/L (0-40); Albumin Level 4.5 g/dL (3.5-5.0); Alkaline Phosphatase 149 U/L (39-117); Anion Gap 19 (12-20); Aspartate Amino Transferase 190 U/L (5-37); Bilirubin Direct 0.2 mg/dL (0.0-0.5); Bilirubin Total 0.5 mg/dL (0.0-1.0); Blood Urea Nitrogen 6 mg/dL (9-16); Calcium 8.5 mg/dL (8.4-10.2); Carbon Dioxide 24 mmol/L (22-29); Chloride 100 mmol/L (96-108); Creatinine Clr Calc Pharmacy 86.2; Estimated Glomerular Filt Rate 53; Glucose Random 209 mg/dL (60-115); Lipase 24 U/L (8-78); Potassium 3.1 mmol/L (3.3-5.1); Sodium 140 mmol/L (135-145); Total Protein 7.7 g/dL (6.5-8.0)
[2020-08-08 03:47] LABS: Ethanol 186 mg/dL
[2020-08-08] MEDS: PHENobarbitaL sodium 130 MG/ML VIAL 310 MG IM (04:45)
--- NOTE | 2020-08-08 05:09 | PC.NURSE ---
HOSPITALIST IN TO BEDSIDE FOR EVAL PT MEDICATED WITH ZOFRAN FOR N/V
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
[2020-08-08] MEDS: ondansetron HCL 4 MG/2 ML VIAL IVPUSH ×3 (06:27→18:30)
--- NOTE | 2020-08-08 06:31 | PC.NURSE ---
PT REPORTS [facility] AND THAT HE WILL SOON BECOME SICK IF HE DOESN'T GET HIS DOSE. CALL OUT TO HOSPITALIST FOR AN ORDER FOR CLONIDINE. AWAITING THE ORDER TO BE PUT IN AT THIS TIME.
[2020-08-08] MEDS: cloNIDine HCL 0.1 MG TABLET PO (08:00)
[2020-08-08] MEDS: PHENobarbitaL sodium 130 MG/ML VIAL 233 MG IM ×2 (08:00→11:21)
[2020-08-08] MEDS: Heparin Sodium,Porcine 5,000 UNIT/ML VIAL 5000 UNIT SUBCUT ×2 (08:01→17:14)
[2020-08-08] MEDS: Potassium Chloride Packet 20 MEQ PACKET 40 MEQ PO (08:12)
[2020-08-08] MEDS: Ferrous Sulfate 324 MG TABLET.DR PO (09:03)
[2020-08-08] MEDS: Folic Acid 1 MG TABLET PO (09:03)
[2020-08-08] MEDS: Thiamine HCL 100 MG TABLET PO (09:03)
[2020-08-08] MEDS: FLUoxetine HCl 20 MG CAPSULE 60 MG PO (09:03)
[2020-08-08] MEDS: 0.9 % Sodium Chloride Flush 3 ML SYRINGE IVFLUSH ×3 (09:05→23:46)
[2020-08-08] MEDS: Buprenorphine/Naloxone 8/2 mg TAB.SUBL 2 TAB SUBLINGUAL (10:03)
[2020-08-08] MEDS: amLODIPine Besylate 5 MG TABLET PO (11:20)
--- NOTE | 2020-08-08 13:59 | PM.EVENT ---
Event Note Date of Service: 08/18/20 Event Note: This patient is seen and examined with this morning by hospitalist service Seen and examined again Patient denies any chest pain or shortness of breath or abdominal pain or fever chills or any new weakness or numbness Seems real anxious Says that he wanted to end his life by drinking alcohol . Physical exam : Cvs: rrr, [id number] , no murmur res: clear to auscultation ,no rhonchii or wheezing abd: no rebound or guarding ,nt, bs present. ext pulses present , no cyanosis neuro: axo3 , nonfocal. assessment and plan coordinated in H&P note. Will continue alcohol withdrawal phenobarb protocol Blood pressure control with clonidine Repeat LFTs in the morning slightly elevated probably due to alcohol use Patient will need BHN clearance before discharge due to SI. Continue to monitor CIWA, and tele.
[2020-08-08] MEDS: Labetalol HCL 100 MG TABLET PO ×2 (14:38→20:46)
[2020-08-08] MEDS: Potassium Chloride Packet 20 MEQ PACKET PO (17:14)
[2020-08-08] MEDS: Prazosin HCL 1 MG CAPSULE 3 MG PO (20:45)
[2020-08-08] MEDS: OLANZapine 7.5 MG TABLET 15 MG PO (20:46)
[2020-08-08] MEDS: PHENobarbitaL 30 MG TABLET 60 MG PO (20:46)
[2020-08-09 03:09] VITALS: BP 102/69; PULSE 90; RESP 22; TEMP 36.3; O2SAT 93
[2020-08-09] MEDS: Omeprazole 20 MG CAPSULE.DR PO (06:04)
[2020-08-09] MEDS: Heparin Sodium,Porcine 5,000 UNIT/ML VIAL 5000 UNIT SUBCUT ×2 (06:04→17:48)
[2020-08-09 06:18] LABS: MANUAL DIFF FLAG NO
[2020-08-09 06:28] LABS: Basophils Percent Auto 0.3 % (0-2); Eosinophils Percent Auto 0.3 % (0-4); Hemoglobin 12.8 g/dl (14.0-18.0); Lymphocytes Absolute Auto 1.5 X10*3/uL (1.2-4.9); Mean Corpuscular HGB Conc 33.7 g/dl (31.0-36.0); Monocytes Absolute Auto 0.3 X10*3/uL (0.1-1.2); Monocytes Percent Auto 7.7 % (2-11); Neutrophils Absolute Auto 1.5 X10*3/uL (2.0-8.3); Neutrophils Percent Auto 45.7 % (45-73); Platelet Count 161 X10*3/uL (160-400); Red Blood Count 4.13 X10*6/uL (4.60-5.80); Red Cell Distribution Width 12.4 % (11.0-16.0); White Blood Count 3.3 X10*3/uL (4.8-10.8)
[2020-08-09 07:05] LABS: Anion Gap 17 (12-20); Blood Urea Nitrogen 13 mg/dL (9-16); Calcium 8.2 mg/dL (8.4-10.2); Carbon Dioxide 26 mmol/L (22-29); Chloride 99 mmol/L (96-108); Creatinine Clr Calc Pharmacy 95.1; Estimated Glomerular Filt Rate 60; Glucose Random 120 mg/dL (60-115); Potassium 3.1 mmol/L (3.3-5.1); Sodium 139 mmol/L (135-145)
[2020-08-09 07:10] VITALS: BP 113/73; PULSE 100; RESP 20; TEMP 36.6; O2SAT 96
[2020-08-09] MEDS: Folic Acid 1 MG TABLET PO (09:11)
[2020-08-09] MEDS: Thiamine HCL 100 MG TABLET PO (09:11)
[2020-08-09] MEDS: FLUoxetine HCl 20 MG CAPSULE 60 MG PO (09:11)
[2020-08-09] MEDS: Ferrous Sulfate 324 MG TABLET.DR PO (09:11)
[2020-08-09] MEDS: 0.9 % Sodium Chloride Flush 3 ML SYRINGE IVFLUSH ×2 (09:11→17:47)
[2020-08-09] MEDS: Buprenorphine/Naloxone 8/2 mg TAB.SUBL 2 TAB SUBLINGUAL (09:11)
[2020-08-09] MEDS: Potassium Chloride ER 20 MEQ TAB.ER.PRT 60 MEQ PO (09:11)
[2020-08-09] MEDS: PHENobarbitaL 30 MG TABLET 60 MG PO (09:12)
[2020-08-09 09:24] LABS: Alanine Aminotransferase 103 U/L (0-40); Albumin Level 3.8 g/dL (3.5-5.0); Alkaline Phosphatase 146 U/L (39-117); Aspartate Amino Transferase 103 U/L (5-37); Bilirubin Direct 0.5 mg/dL (0.0-0.5); Bilirubin Total 1.2 mg/dL (0.0-1.0); Magnesium 1.9 mg/dL (1.6-2.6); Total Protein 6.4 g/dL (6.5-8.0)
[2020-08-09 10:09] VITALS: BMI 39.3
[2020-08-09 10:55] VITALS: BP 131/79; PULSE 90; RESP 18; TEMP 35.9; O2SAT 97
--- NOTE | 2020-08-09 15:07 | MHC.CM.PN ---
Male 54 DX ETOH withdrawal. Pt lives w x- independent DP Pt requests Rehab. [facility] to see Pt prior to DC. Pt will arrange transportation. CM will follow.
[2020-08-09 15:09] VITALS: BP 112/65; PULSE 98; RESP 18; TEMP 36.2; O2SAT 94
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
--- NOTE | 2020-08-09 18:09 | PM.EVENT ---
Event Note Date of Service: 08/09/20 Event Note: AMA Note Called by RN to report that the patient wanted to leave against medical advice. Patient seen examined. Patient is alert and oriented x3 and capable of making this decision. Informed him of the risks of leaving against medical advice which include worsening of his withdrawal (not at this time), and possibly even . He is able to relate back to me the risks of leaving and despite this signs against medical advice. per research greenhouse supervisor -- [facility] Security called [employer] and no arrest warrants for the patient and as such, he was able to sign AMA.
--- NOTE | 2020-08-09 18:11 | PM.DS ---
DS: Providers Provider Date of Service: 08/09/20 Date of admission: 08/08/20 05:44 Primary care physician: Unknown Physician Consults: 08/08/20 14:04 Consult to Crisis Stat Reason for consultation: SI/alcohol use Has provider been notified: No DS: Diagnosis Discharge Diagnosis (1) Alcohol withdrawal: Status: Acute (2) Alcohol abuse: Status: Acute DS: Medications Discharge Medications Home Medications: Home Medications Medication Instructions Recorded Confirmed buprenorphine-naloxone 2 tab SUBLINGUAL DAILY 06/01/20 08/08/20 dextroamphetamine-amphetamine 60 mg PO DAILY 06/01/20 08/08/20 [Adderall XR] ferrous sulfate 325 mg PO DAILY 06/01/20 08/08/20 fluoxetine 60 mg PO DAILY 06/01/20 08/08/20 ibuprofen 600 mg PO TID PRN 06/01/20 08/08/20 multivitamin 1 tab PO DAILY 06/01/20 08/08/20 olanzapine 15 mg PO BEDTIME 06/01/20 08/08/20 omega 9-bnl-xtl-fish oil [Fish Oil] 1 cap PO DAILY 06/01/20 08/08/20 omeprazole 20 mg PO DAILY 06/01/20 08/08/20 prazosin 3 mg PO BEDTIME PRN 06/01/20 08/08/20 trazodone 50 mg PO BEDTIME PRN 06/01/20 08/08/20 amlodipine 5 mg PO DAILY 08/08/20 08/08/20 garlic 500 mg PO DAILY 08/08/20 08/08/20 DS: Summary Hospital Course Hospital Course: Patient was being treated for alcohol withdrawal with phenobarbital per protocol. He was doing fairly well and the plan was for discharge tomorrow, 06/09/2021 however he decided upon leaving against medical advice prior to this. Time Spent with Patient Time attestation: Total time spent providing and/or coordinating discharge services: Discharge coordination time: Less than 30 minutes Physical Exam Vital Signs: Vital Signs: Last Vital Signs Temp 97.2 F 08/09/20 15:09 Pulse 98 08/09/20 15:09 Resp 18 08/09/20 15:09 BP 112/65 08/09/20 15:09 Pulse Ox 94 08/09/20 15:09 Body Mass Index 39.3 Const: Other: General - no acute distress, appears comfortable Cardiovascular - regular rate and rhythm, S1-S2 Lungs - normal respiratory effort, clear to auscultation bilaterally, no wheezing Abdomen - soft, nontender, no rebound or guarding Extremities - no edema bilaterally Neuro - awake and alert, no focal deficits DS: Data Data Completed and Pending Completed studies during hospitalization [Text1]: Procedures Detoxification Services for Substance Abuse Treatment (06/01/20) Labs on day of discharge: Laboratory Tests 08/08/20 08/08/20 08/08/20 01:37 01:37 01:37 WBC 5.0 RBC 4.67 D Hgb 14.5 D Hct 42.2 D MCV 90.4 MCH 31.0 MCHC 34.4 RDW 12.8 Plt Count 237 D MPV 9.1 L Immature Gran % (Auto) 0.2 Neut % (Auto) 70.4 Lymph % (Auto) 16.5 L [place] % (Auto) 12.1 H Eos % (Auto) 0.2 Baso % (Auto) 0.6 Lymph # (Auto) 0.8 L [place] # (Auto) 0.6 Eos # (Auto) 0.0 Baso # (Auto) 0.0 Abs Immat Gran (auto) 0.01 Absolute Neuts (auto) 3.5 Absolute Nucleated RBC 0.000 Nucleated RBC % (auto) 0.0 PT 13.3 H INR 1.1 Sodium 140 Potassium 3.1 L Chloride 100 Carbon Dioxide 24 Anion Gap 19 BUN 6 L D Creatinine 1.39 Estim Creat Clear Calc 86.2 Estimated GFR 53 Random Glucose 209 H D Calcium 8.5 Magnesium 2.0 Total Bilirubin 0.5 Direct Bilirubin 0.2 AST 190 H ALT 128 H Alkaline Phosphatase 149 H D Total Protein 7.7 D Albumin 4.5 D Lipase 24 Specimen Comment Phenobarbital Ethyl Alcohol COVID-19 (DON) COVID-19 Clin Com 08/08/20 08/08/20 08/08/20 01:42 02:35 03:19 WBC RBC Hgb Hct MCV MCH MCHC RDW Plt Count MPV Immature Gran % (Auto) Neut % (Auto) Lymph % (Auto) [place] % (Auto) Eos % (Auto) Baso % (Auto) Lymph # (Auto) [place] # (Auto) Eos # (Auto) Baso # (Auto) Abs Immat Gran (auto) Absolute Neuts (auto) Absolute Nucleated RBC Nucleated RBC % (auto) PT INR Sodium Potassium Chloride Carbon Dioxide Anion Gap BUN Creatinine Estim Creat Clear Calc Estimated GFR Random Glucose Calcium Magnesium Total Bilirubin Direct Bilirubin AST ALT Alkaline Phosphatase Total Protein Albumin Lipase Specimen Comment DELAY Phenobarbital Ethyl Alcohol 186 COVID-19 (DON) Negative COVID-19 Clin Com See Note 08/08/20 08/09/20 08/09/20 03:19 05:21 05:21 WBC 3.3 L RBC 4.13 L Hgb 12.8 L Hct 38.0 L MCV 92.0 MCH 31.0 MCHC 33.7 RDW 12.4 Plt Count 161 D MPV 10.0 Immature Gran % (Auto) 0.0 Neut % (Auto) 45.7 Lymph % (Auto) 46.0 H [place] % (Auto) 7.7 Eos % (Auto) 0.3 Baso % (Auto) 0.3 Lymph # (Auto) 1.5 [place] # (Auto) 0.3 Eos # (Auto) 0.0 Baso # (Auto) 0.0 Abs Immat Gran (auto) 0.00 Absolute Neuts (auto) 1.5 L Absolute Nucleated RBC 0.000 Nucleated RBC % (auto) 0.0 PT INR Sodium 139 Potassium 3.1 L Chloride 99 Carbon Dioxide 26 Anion Gap 17 BUN 13 D Creatinine 1.26 Estim Creat Clear Calc 95.1 Estimated GFR 60 Random Glucose 120 H D Calcium 8.2 L Magnesium 1.9 Total Bilirubin 1.2 H Direct Bilirubin 0.5 AST 103 H ALT 103 H Alkaline Phosphatase 146 H Total Protein 6.4 L Albumin 3.8 Lipase Specimen Comment Phenobarbital < 1.1 L Ethyl Alcohol COVID-19 (DON) COVID-19 Clin Com 08/09/20 05:21 WBC RBC Hgb Hct MCV MCH MCHC RDW Plt Count MPV Immature Gran % (Auto) Neut % (Auto) Lymph % (Auto) [place] % (Auto) Eos % (Auto) Baso % (Auto) Lymph # (Auto) [place] # (Auto) Eos # (Auto) Baso # (Auto) Abs Immat Gran (auto) Absolute Neuts (auto) Absolute Nucleated RBC Nucleated RBC % (auto) PT INR Sodium Cancelled Potassium Cancelled Chloride Cancelled Carbon Dioxide Cancelled Anion Gap Cancelled BUN Cancelled Creatinine Cancelled Estim Creat Clear Calc Cancelled Estimated GFR Cancelled Random Glucose Cancelled Calcium Cancelled Magnesium Total Bilirubin Direct Bilirubin AST ALT Alkaline Phosphatase Total Protein Albumin Lipase Specimen Comment Phenobarbital Ethyl Alcohol COVID-19 (DON) COVID-19 Clin Com Discharge Plan Discharge Patient Disposition: Left Against Medical Advice Referrals: Physician,Unknown [Primary Care Provider] - Discharge Medications: No Action multivitamin Tablet 1 tab PO DAILY RF: 0 prazosin 1 mg Capsule 3 mg PO BEDTIME PRN (Reason: Insomnia) RF: 0 trazodone 100 mg Tablet 50 mg PO BEDTIME PRN (Reason: Insomnia) RF: 0 ferrous sulfate 325 mg (65 mg iron) Tablet 325 mg PO DAILY RF: 0 omeprazole 20 mg Capsule,Delayed Release(Dr/Ec) 20 mg PO DAILY RF: 0 olanzapine 15 mg Tablet 15 mg PO BEDTIME RF: 0 ibuprofen 600 mg Tablet 600 mg PO TID PRN (Reason: Pain) RF: 0 dextroamphetamine-amphetamine [Adderall XR] 30 mg Capsule,Extended Release 24hr 60 mg PO DAILY RF: 0 fluoxetine 20 mg Capsule 60 mg PO DAILY RF: 0 buprenorphine-naloxone 8-2 mg Tablet, Sublingual 2 tab SUBLINGUAL DAILY RF: 0 omega 2-csi-hst-fish oil [Fish Oil] 1,000 mg (120 mg-180 mg) Capsule 1 cap PO DAILY RF: 0 garlic Capsule 500 mg PO DAILY RF: 0 amlodipine 5 mg Tablet 5 mg PO DAILY RF: 0 Discharge Orders: Discharge Order (Routine); Ordered 08/09/20 Ordered By: Emanuel Saini Care Plan Goals: To return to the emergency room should I changed by decision about leaving AMA Health Concerns: Alcohol abuse and dependence Plan of Treatment: Your leaving against medical advice, should you change your mind please return to the emergency room.
--- NOTE | 2020-08-09 18:11 | PC.NURSE ---
Patient left AMA because of issues he was concerned with at home. Warm turn over. Dr. Saini made aware and tried to keep patient here. IV pulled. Patient's son here to pick him up. Incident report filed.
== END 2020-08-09 17:30 | disposition left against medical advice (07) | DRG 641 ==
LOC: HO.ED 05:03 → HO.EDOVER 05:51 → HO.S3 09:44 → HO.EDOVER 11:17 → HO.S3 11:30 → HO.IMC 14:59
PROVIDERS: Emergency Medicine; Admitting Provider Internal Medicine; Emergency Provider Internal Medicine; Visit Provider Family Medicine
DX: E87.6 Hypokalemia (principal); F10.239 Alcohol dependence with withdrawal, unspecified; F11.20 Opioid dependence, uncomplicated; F90.9 Attention-deficit hyperactivity disorder, unspecified type; G47.30 Sleep apnea, unspecified; R00.0 Tachycardia, unspecified; F10.229 Alcohol dependence with intoxication, unspecified; R74.01 Elevation of levels of liver transaminase levels; I10 Essential (primary) hypertension; F43.10 Post-traumatic stress disorder, unspecified; Z99.89 Dependence on other enabling machines and devices; Z20.822 Contact with and (suspected) exposure to COVID-19; Z79.1 Long term (current) use of non-steroidal anti-inflammatories (NSAID); Z79.899 Other long term (current) drug therapy
CPT/HCPCS: 36415; 71045; 80048; 80076; 80184; 80320; 83690; 83735; 85025; 85610; 87635; 93005; 96365; 96372; 96375; 99285; J2060; J2405; J2560; J3411; J3475